=== PATIENT | female | born 1935 | race Caucasian/White ===

== ENCOUNTER → 2018-01-12 | Outpatient (CLI) | payer MEDICARE ==
[~2018-01-12] MED LIST: ASPI325 PO; Antivert25 MG PO; CENESTIN; ESTR.625; EXFORGE; LEVSOD50; MECL25 PO; ROSU10TA; SPIR25 PO; SPIRONOLACTONE/HCTZ; Zofran Odt8 MG SL; [UNRECOGNIZED DRUG - CODE]; [UNRECOGNIZED DRUG - OTHER]
[2018-01-12 11:04] LABS: BASOPHILS ABSOLUTE AUTO 0.03 K/mm3 (0.00-0.23); BASOPHILS PERCENT AUTO 0 % (0-2); EOSINOPHILS ABSOLUTE AUTO 0.07 K/mm3 (0.00-0.68); EOSINOPHILS PERCENT AUTO 1 % (0-6); Hematocrit 40.3 % (33.0-51.0); Hemoglobin 13.4 g/dL (11.5-16.0); IMMATURE GRAN ABSOLUTE AUTO 0.06 K/mm3 (0.00-0.10); IMMATURE GRAN PERCENT AUTO 1 % (0-1); LYMPHOCYTES ABSOLUTE AUTO 1.54 K/mm3 (0.84-5.20); LYMPHOCYTES PERCENT AUTO 14 % (21-46); MONOCYTES PERCENT AUTO 5 % (4-13); Mean Corpuscular HGB 29.7 pg (26.0-34.0); Mean Corpuscular HGB Conc 33.3 g/dL (31.5-36.5); Mean Corpuscular Volume 89 fL (80-100); Mean Platelet Volume 9.9 fL (9.1-12.4); NEUTROPHILS ABSOLUTE AUTO 8.97 K/mm3 (1.96-9.15); NEUTROPHILS PERCENT AUTO 80 % (41-73); Platelet Count 350 K/mm3 (150-400); RDW Coefficient Variation 11.5 % (11.7-14.2); RDW Standard Deviation 37.1 fL (35.1-46.3); Red Blood Cell Count 4.51 M/mm3 (3.80-5.20); White Blood Cell Count 11.27 K/mm3 (4.00-11.30)
== END ==
LOC: LAB SHORT 10:29 → LAB 10:29
PROVIDERS: Nurse Practitioner
DX: M26.629 Arthralgia of temporomandibular joint, unspecified side (principal); M25.50 Pain in unspecified joint
CPT/HCPCS: 85025; 85651

== ENCOUNTER 2019-06-17 11:46 | Day surgery (SDC) | payer MEDICARE ==
[~2019-06-17] VITALS: Ht 160 cm; Wt 76.2 kg
[2019-06-17] MEDS ORDERED: Pepcid40 MG (13:07)
[2019-06-17] MEDS ORDERED: Amaryl1 MG (13:07)
[2019-06-17] MEDS ORDERED: ATOR10 (13:08)
[2019-06-17] MEDS ORDERED: LEVSOD100 (13:08)
[2019-06-17] MEDS ORDERED: SPIR25 (13:08)
[2019-06-17] MEDS ORDERED: OLME20 (13:09)
[2019-06-17] MEDS ORDERED: AMLO10 (13:09)
[2019-06-17] MEDS ORDERED: PRED1 (13:09)
[2019-06-17] MEDS ORDERED: Aspir 8181 MG (13:09)
== END 2019-06-17 14:15 | disposition home or self-care (01) ==
LOC: ORSCSDS 11:46
PROVIDERS: Internal Medicine Gastroenterology
PROC: 0D758ZZ Dilation of Esophagus, Via Natural or Artificial Opening Endoscopic (ICD-10-PCS; principal; 2019-06-17 14:00)
PROC: 0DB68ZX Excision of Stomach, Via Natural or Artificial Opening Endoscopic, Diagnostic (ICD-10-PCS; principal; 2019-06-17 14:00)
PROC: 0D568ZZ Destruction of Stomach, Via Natural or Artificial Opening Endoscopic (ICD-10-PCS; principal; 2019-06-17 14:00)
DX: R13.14 Dysphagia, pharyngoesophageal phase (principal); K31.819 Angiodysplasia of stomach and duodenum without bleeding; K29.60 Other gastritis without bleeding; K22.2 Esophageal obstruction; K44.9 Diaphragmatic hernia without obstruction or gangrene; Z86.010 Personal history of colon polyps; K57.30 Diverticulosis of large intestine without perforation or abscess without bleeding; R07.9 Chest pain, unspecified; E11.22 Type 2 diabetes mellitus with diabetic chronic kidney disease; I12.9 Hypertensive chronic kidney disease with stage 1 through stage 4 chronic kidney disease, or unspecified chronic kidney disease; N18.3 Chronic kidney disease, stage 3 (moderate); E03.9 Hypothyroidism, unspecified; E78.5 Hyperlipidemia, unspecified; Z87.891 Personal history of nicotine dependence; Z79.899 Other long term (current) drug therapy
CPT/HCPCS: 82947; 87081; J2704; J7120

== ENCOUNTER 2020-03-29 19:24 | Inpatient (IN) | payer MEDICARE ==
[~2020-03-29] VITALS: Ht 160 cm; Wt 75.3 kg
[~2020-03-29 19:24] MED LIST changes: +AMLO10; +AMLODIPINE BES2.5 MG PO; +ATOR10; +ATORVASTATIN CA20 MG PO; +Amaryl1 MG PO; +Aspir 8181 MG PO; +LEVSOD100; +OLME20; +OLMESARTAN MEDO20 MG PO; +PRED1 PO; +Pepcid40 MG PO; +SPIR25; +SPIRONOLACTONE1 EACH PO; +SYNTHROID75 MCG PO; +TRAZ50 PO
[2020-03-29 20:31] LABS: BASOPHILS ABSOLUTE AUTO 0.06 K/mm3 (0.00-0.23); BASOPHILS PERCENT AUTO 0 % (0-2); EOSINOPHILS ABSOLUTE AUTO 0.08 K/mm3 (0.00-0.68); EOSINOPHILS PERCENT AUTO 0 % (0-6); Hematocrit 36.9 % (33.0-51.0); Hemoglobin 12.8 g/dL (11.5-16.0); IMMATURE GRAN ABSOLUTE AUTO 0.14 K/mm3 (0.00-0.10); IMMATURE GRAN PERCENT AUTO 1 % (0-1); LYMPHOCYTES ABSOLUTE AUTO 2.44 K/mm3 (0.84-5.20); LYMPHOCYTES PERCENT AUTO 12 % (21-46); MONOCYTES ABSOLUTE AUTO 0.91 K/mm3 (0.16-1.47); MONOCYTES PERCENT AUTO 4 % (4-13); Mean Corpuscular HGB 30.5 pg (26.0-34.0); Mean Corpuscular HGB Conc 34.7 g/dL (31.5-36.5); Mean Corpuscular Volume 88 fL (80-100); Mean Platelet Volume 9.5 fL (9.1-12.4); NEUTROPHILS ABSOLUTE AUTO 17.38 K/mm3 (1.96-9.15); NEUTROPHILS PERCENT AUTO 83 % (41-73); Platelet Count 488 K/mm3 (150-400); RDW Coefficient Variation 12.6 % (11.7-14.2); RDW Standard Deviation 40.4 fL (35.1-46.3); White Blood Cell Count 21.01 K/mm3 (4.00-11.30)
[2020-03-29 20:42] LABS: Albumin, Blood 3.6 g/dL (3.4-5.0); Albumin/Globulin Ratio 1.1 (0.8-1.8); Bilirubin, Total 0.9 mg/dL (0.1-1.0); Bun/Creatinine Ratio 21.3 (12.0-20.0); Calcium, Blood 9.6 mg/dL (8.5-10.1); Creatinine, Blood 1.22 mg/dL (0.40-1.00); Globulin, Blood 3.4 g/dL (2.2-4.0); Potassium, Blood 3.9 mmol/L (3.5-5.5)
[2020-03-30 06:27] LABS: BASOPHILS ABSOLUTE AUTO 0.05 K/mm3 (0.00-0.23); BASOPHILS PERCENT AUTO 0 % (0-2); EOSINOPHILS ABSOLUTE AUTO 0.09 K/mm3 (0.00-0.68); EOSINOPHILS PERCENT AUTO 1 % (0-6); Hematocrit 34.8 % (33.0-51.0); Hemoglobin 11.8 g/dL (11.5-16.0); IMMATURE GRAN ABSOLUTE AUTO 0.09 K/mm3 (0.00-0.10); IMMATURE GRAN PERCENT AUTO 1 % (0-1); LYMPHOCYTES ABSOLUTE AUTO 2.15 K/mm3 (0.84-5.20); LYMPHOCYTES PERCENT AUTO 15 % (21-46); MONOCYTES ABSOLUTE AUTO 0.73 K/mm3 (0.16-1.47); MONOCYTES PERCENT AUTO 5 % (4-13); Mean Corpuscular HGB 30.3 pg (26.0-34.0); Mean Corpuscular HGB Conc 33.9 g/dL (31.5-36.5); Mean Corpuscular Volume 89 fL (80-100); Mean Platelet Volume 9.6 fL (9.1-12.4); NEUTROPHILS ABSOLUTE AUTO 11.28 K/mm3 (1.96-9.15); NEUTROPHILS PERCENT AUTO 79 % (41-73); Platelet Count 431 K/mm3 (150-400); RDW Coefficient Variation 12.7 % (11.7-14.2); RDW Standard Deviation 41.8 fL (35.1-46.3); White Blood Cell Count 14.39 K/mm3 (4.00-11.30)
[2020-03-30 06:39] LABS: Calcium, Blood 9.3 mg/dL (8.5-10.1); Creatinine, Blood 1.3 mg/dL (0.40-1.00); Potassium, Blood 3.8 mmol/L (3.5-5.5)
[2020-03-30 14:29] LABS: Source, Urine Clean Catch
[2020-03-30 14:36] LABS: Bilirubin, Urine Neg (Neg); Blood, Urine Neg (Neg); Glucose Qualitative, Urine 3+ (Neg); Ketones, Urine Neg (Neg); Leukocyte Esterase, Urine Neg (Neg); Nitrite, Urine Neg (Neg); Protein, Urine Neg (Neg); Specific Gravity, Urine 1.015 (1.003-1.022); Urobilinogen, Urine NORM (Normal)
[2020-03-30 14:46] LABS: Appearance, Urine Clear (Clear); Color, Urine Yellow (P-Yellow)
--- NOTE | 2020-03-30 16:22 | NUR ---
SHIFT SUMMARY PT WAS AN ED ADMIT THIS MORNING. SHE HAS SOME STOMACH DISCOMFORT BUT NO C/O PAIN. SHE ALSO HAS A SURGICAL SITE TO HER RIGHT HIP WHERE SHE RECENTLY HAD SURGERY. SHE IS AMBULATORY WITH A FWW AND HAS BEEN WORKING WITH THERAPY ALREADY TODAY. SHE IS ABLE TO MAKE HER NEEDS KNOWN AND HAS HER CALL LIGHT IN REACH. SHE IS RESTING IN BED WATCHING TV.
[2020-03-31 05:01] LABS: BASOPHILS ABSOLUTE AUTO 0.05 K/mm3 (0.00-0.23); BASOPHILS PERCENT AUTO 0 % (0-2); EOSINOPHILS ABSOLUTE AUTO 0.09 K/mm3 (0.00-0.68); EOSINOPHILS PERCENT AUTO 1 % (0-6); Hematocrit 33.1 % (33.0-51.0); Hemoglobin 11.4 g/dL (11.5-16.0); IMMATURE GRAN ABSOLUTE AUTO 0.09 K/mm3 (0.00-0.10); IMMATURE GRAN PERCENT AUTO 1 % (0-1); LYMPHOCYTES ABSOLUTE AUTO 1.96 K/mm3 (0.84-5.20); LYMPHOCYTES PERCENT AUTO 15 % (21-46); MONOCYTES PERCENT AUTO 5 % (4-13); Mean Corpuscular HGB 30.5 pg (26.0-34.0); Mean Corpuscular HGB Conc 34.4 g/dL (31.5-36.5); Mean Corpuscular Volume 89 fL (80-100); Mean Platelet Volume 9.4 fL (9.1-12.4); NEUTROPHILS ABSOLUTE AUTO 10.67 K/mm3 (1.96-9.15); NEUTROPHILS PERCENT AUTO 79 % (41-73); Platelet Count 366 K/mm3 (150-400); RDW Coefficient Variation 12.5 % (11.7-14.2); RDW Standard Deviation 40.6 fL (35.1-46.3); Red Blood Cell Count 3.74 M/mm3 (3.80-5.20); White Blood Cell Count 13.56 K/mm3 (4.00-11.30)
[2020-03-31 05:21] LABS: Albumin, Blood 2.8 g/dL (3.4-5.0); Anion Gap 8 mmol/L (6-16); Blood Urea Nitrogen 21 mg/dL (8-24); Bun/Creatinine Ratio 19.4 (12.0-20.0); CO2, Blood 24 mmol/L (21-32); Calcium, Blood 8.9 mg/dL (8.5-10.1); Chloride, Blood 96 mmol/L (98-108); Creatinine, Blood 1.08 mg/dL (0.40-1.00); Glomerular Filtration Rate 51 (60-); Glucose, Blood 123 mg/dL (70-99); Phosphorus, Blood 2.9 mg/dL (2.5-4.9); Potassium, Blood 3.5 mmol/L (3.5-5.5); Sodium, Blood 128 mmol/L (136-145)
--- NOTE | 2020-03-31 06:08 | NUR ---
SUMMARY NO ISSUES NOTED. PT DENIES ANY PAIN OR DISCOMFORT. PT HAS BEEN SLEEPING WELL FOR MOST OF SHIFT. PT R HIP DRESSING INTACT. PT SLEEPING AND BREATHING EASY. CALL LIGHT IN REACH AND BED ALARM ON.
[2020-03-31] MEDS ORDERED: ACET325 PO (13:34)
[2020-03-31] MEDS ORDERED: CIPR500 PO (13:34)
[2020-03-31] MEDS ORDERED: METR500 PO (13:35)
--- NOTE | 2020-03-31 14:53 | NUR ---
DISCHARGE NOTE PT ALERT AND ORIENTED THIS SHIFT. PT UP IN ROOM WITH FFW AND STANDBY ASSIST TO RESTROOM MULTIPLE TIMES THIS SHIFT. PT DENIES PAIN OR ABDOMINAL DISCOMFORT THIS SHIFT. PT ON CLEAR LIQUID DIET WITHOUT DISCOMFORT. PT'S SISTER IN THE ROOM AROUND NOON. PT AND SISTER PROVIDED WITH DISCHARGE AND MEDICATION ORDERS. NO QUESTIONS AT THIS TIME. PT DISCHARGED TO HOME ON LIQUID DIET X3 DAYS. PT PROVIDED WITH INFORMATION ON LIQUID DIET. PT TO VEHICLE VIA WHEELCHAIR BY BRADFORD Ellison CNA.
[2020-04-03] MEDS ORDERED: AMOCLA875 PO (20:52)
[2020-04-03] MEDS ORDERED: Neurontin 100100 MG PO ×2 (20:52→20:55)
[2020-04-05] MEDS ORDERED: HYDR1TAB94 PO (07:48)
[2020-04-05] MEDS ORDERED: DOCU100 PO (07:48)
== END 2020-03-31 14:10 | disposition home or self-care (01) | DRG 392 ==
LOC: ER 19:24 → MEDS 03-30 01:11 → ERHOLD 03-30 01:11 → MEDS 03-30 10:54
PROVIDERS: Family Medicine; Physician Assistant; ADMIT Internal Medicine
DX: K57.32 Diverticulitis of large intestine without perforation or abscess without bleeding (principal); E87.1 Hypo-osmolality and hyponatremia; M35.3 Polymyalgia rheumatica; I12.9 Hypertensive chronic kidney disease with stage 1 through stage 4 chronic kidney disease, or unspecified chronic kidney disease; E03.9 Hypothyroidism, unspecified; N18.3 Chronic kidney disease, stage 3 (moderate); E11.22 Type 2 diabetes mellitus with diabetic chronic kidney disease; E78.5 Hyperlipidemia, unspecified; Z66 Do not resuscitate; Z96.641 Presence of right artificial hip joint; Z79.82 Long term (current) use of aspirin
CPT/HCPCS: 36415; 74176; 80048; 80053; 80069; 81003; 82947; 83605; 83690; 85025; 96365; 96375; 97162; 97165; 97530; 99285-25; A9270-GY; J0696; J0744; J1650; J7050; J7512

== ENCOUNTER 2021-07-17 11:43 | Emergency (ER) | payer MEDICARE ==
[~2021-07-17] VITALS: Ht 160 cm; Wt 61.2 kg
[~2021-07-17 11:43] MED LIST changes: +ACET325 PO; +AMOCLA875 PO; +CIPR500 PO; +DOCU100 PO; +HYDR1TAB94 PO; +METR500 PO; +Neurontin 100100 MG PO
[2021-07-17 12:29] LABS: BASOPHILS ABSOLUTE AUTO 0.04 K/mm3 (0.00-0.23); BASOPHILS PERCENT AUTO 0 % (0-2); EOSINOPHILS ABSOLUTE AUTO 0.07 K/mm3 (0.00-0.68); EOSINOPHILS PERCENT AUTO 1 % (0-6); Hematocrit 42.6 % (33.0-51.0); Hemoglobin 14.1 g/dL (11.5-16.0); IMMATURE GRAN ABSOLUTE AUTO 0.04 K/mm3 (0.00-0.10); IMMATURE GRAN PERCENT AUTO 0 % (0-1); LYMPHOCYTES ABSOLUTE AUTO 2.01 K/mm3 (0.84-5.20); LYMPHOCYTES PERCENT AUTO 19 % (21-46); MONOCYTES ABSOLUTE AUTO 0.43 K/mm3 (0.16-1.47); MONOCYTES PERCENT AUTO 4 % (4-13); Mean Corpuscular HGB 30.5 pg (26.0-34.0); Mean Corpuscular HGB Conc 33.1 g/dL (31.5-36.5); Mean Corpuscular Volume 92 fL (80-100); Mean Platelet Volume 9.9 fL (9.1-12.4); NEUTROPHILS ABSOLUTE AUTO 7.86 K/mm3 (1.96-9.15); NEUTROPHILS PERCENT AUTO 75 % (41-73); Platelet Count 309 K/mm3 (150-400); RDW Coefficient Variation 12.5 % (11.7-14.2); RDW Standard Deviation 42.3 fL (35.1-46.3); Red Blood Cell Count 4.63 M/mm3 (3.80-5.20); White Blood Cell Count 10.45 K/mm3 (4.00-11.30)
[2021-07-17 12:47] LABS: Alanine Aminotransfer (ALT/SGP 27 U/L (12-78); Albumin, Blood 4.1 g/dL (3.4-5.0); Albumin/Globulin Ratio 1.2 (0.8-1.8); Alk Phos 121 U/L (50-136); Anion Gap 7 mmol/L (6-16); Aspartate Aminotrans (AST/SGOT 20 U/L (12-37); Blood Urea Nitrogen 32 mg/dL (8-24); Bun/Creatinine Ratio 19.9 (12.0-20.0); CO2, Blood 27 mmol/L (21-32); Calcium, Blood 9.4 mg/dL (8.5-10.1); Chloride, Blood 105 mmol/L (98-108); Creatinine, Blood 1.61 mg/dL (0.40-1.00); Globulin, Blood 3.5 g/dL (2.2-4.0); Glomerular Filtration Rate 30 (60-); Glucose, Blood 166 mg/dL (70-99); Potassium, Blood 3.6 mmol/L (3.5-5.5); Sodium, Blood 139 mmol/L (136-145); Total Protein, Blood 7.6 g/dL (6.4-8.2); Troponin I <0.015 ng/mL (0.000-0.040)
[2021-07-17 13:05] LABS: Source, Urine Voided
[2021-07-17 13:16] LABS: Appearance, Urine Hazy (Clear); Bilirubin, Urine Neg (Neg); Blood, Urine Neg (Neg); Color, Urine Yellow (P-Yellow); Glucose Qualitative, Urine 1+ (Neg); Ketones, Urine Neg (Neg); Leukocyte Esterase, Urine 3+ (Neg); Nitrite, Urine Neg (Neg); Protein, Urine 2+ (Neg); Urobilinogen, Urine NORM (Normal)
[2021-07-17 13:27] LABS: Red Blood Cells, Urine 0-2 /hpf (0-2); Squamous Epithelial Cells Mod /hpf (Few)
[2021-07-17 13:28] LABS: Bacteria Few /hpf
[2021-07-17 14:53] LABS: SARS-Cov-2 (COVID-19) PCR, MMC NEGATIVE (NEGATIVE)
== END 2021-07-17 15:02 | disposition home or self-care (01) ==
LOC: ER 11:43
PROVIDERS: Emergency Medicine; Physician Assistant
DX: R07.89 Other chest pain (principal); R06.02 Shortness of breath; E11.9 Type 2 diabetes mellitus without complications; E78.5 Hyperlipidemia, unspecified; E03.9 Hypothyroidism, unspecified; Z88.7 Allergy status to serum and vaccine; Z79.82 Long term (current) use of aspirin; Z79.899 Other long term (current) drug therapy; Z79.2 Long term (current) use of antibiotics
CPT/HCPCS: 36415; 71046; 80053; 81001; 84484; 85025; 85379; 87086; 93005; 93010; 99285-25; U0004

== ENCOUNTER 2021-07-21 04:34 | Day surgery (SDC) | payer MEDICARE | END 2021-07-21 10:30 | disposition home or self-care (01) | LOC: ATC 04:34 | DX: E27.49 Other adrenocortical insufficiency (principal); E11.22 Type 2 diabetes mellitus with diabetic chronic kidney disease; I12.9 Hypertensive chronic kidney disease with stage 1 through stage 4 chronic kidney disease, or unspecified chronic kidney disease; N18.32 Chronic kidney disease, stage 3b; E11.40 Type 2 diabetes mellitus with diabetic neuropathy, unspecified; E03.9 Hypothyroidism, unspecified; E78.5 Hyperlipidemia, unspecified; M35.3 Polymyalgia rheumatica; Z79.82 Long term (current) use of aspirin; Z79.84 Long term (current) use of oral hypoglycemic drugs | CPT/HCPCS: 80400; 82533; 96372; J0834 ==

== ENCOUNTER 2022-01-06 07:49 | Emergency (ER) | payer MEDICARE ==
[~2022-01-06] VITALS: Ht 162.6 cm; Wt 69.8 kg
[2022-01-06] MEDS ORDERED: HYDR1TAB94 PO (11:10)
[2022-01-06] MEDS ORDERED: ONDA4ODT SL (12:13)
== END 2022-01-06 12:22 | disposition home or self-care (01) ==
LOC: ER 07:49
DX: S42.251A Displaced fracture of greater tuberosity of right humerus, initial encounter for closed fracture (principal); W01.0XXA Fall on same level from slipping, tripping and stumbling without subsequent striking against object, initial encounter; W10.1XXA Fall (on)(from) sidewalk curb, initial encounter; E11.9 Type 2 diabetes mellitus without complications; E03.9 Hypothyroidism, unspecified; E78.00 Pure hypercholesterolemia, unspecified; Z79.84 Long term (current) use of oral hypoglycemic drugs; Z88.7 Allergy status to serum and vaccine
CPT/HCPCS: 73020; 73030; 73070; J2270; J2405; J3010

== ENCOUNTER 2022-05-28 19:02 | Emergency (ER) | payer MEDICARE ==
[~2022-05-28] VITALS: Ht 162.6 cm; Wt 64.9 kg
[~2022-05-28 19:02] MED LIST changes: +ONDA4ODT SL
[2022-05-28 19:38] LABS: BASOPHILS ABSOLUTE AUTO 0.05 K/mm3 (0.00-0.23); BASOPHILS PERCENT AUTO 1 % (0-2); EOSINOPHILS ABSOLUTE AUTO 0.18 K/mm3 (0.00-0.68); EOSINOPHILS PERCENT AUTO 2 % (0-6); Hematocrit 40.3 % (33.0-51.0); IMMATURE GRAN ABSOLUTE AUTO 0.06 K/mm3 (0.00-0.10); IMMATURE GRAN PERCENT AUTO 1 % (0-1); LYMPHOCYTES PERCENT AUTO 30 % (21-46); MONOCYTES ABSOLUTE AUTO 0.42 K/mm3 (0.16-1.47); MONOCYTES PERCENT AUTO 4 % (4-13); Mean Corpuscular HGB 29.7 pg (26.0-34.0); Mean Corpuscular HGB Conc 32.3 g/dL (31.5-36.5); Mean Corpuscular Volume 92 fL (80-100); Mean Platelet Volume 9.8 fL (9.1-12.4); NEUTROPHILS PERCENT AUTO 62 % (41-73); Platelet Count 254 K/mm3 (150-400); RDW Coefficient Variation 12.9 % (11.7-14.2); RDW Standard Deviation 43.8 fL (35.1-46.3); Red Blood Cell Count 4.37 M/mm3 (3.80-5.20); White Blood Cell Count 9.61 K/mm3 (4.00-11.30)
[2022-05-28 19:40] LABS: International Normalized Ratio 0.98; Prothrombin Time Results 10.3 Sec (9.7-11.5)
[2022-05-28 19:53] LABS: Albumin, Blood 3.7 g/dL (3.4-5.0); Albumin/Globulin Ratio 1.4 (0.8-1.8); Bilirubin, Total 0.4 mg/dL (0.1-1.0); Bun/Creatinine Ratio 20.5 (12.0-20.0); Calcium, Blood 9.1 mg/dL (8.5-10.1); Creatinine, Blood 1.32 mg/dL (0.40-1.00); Globulin, Blood 2.7 g/dL (2.2-4.0); Potassium, Blood 3.7 mmol/L (3.5-5.5); Total Protein, Blood 6.4 g/dL (6.4-8.2)
[2022-05-28] MEDS ORDERED: EUTHYROX75 MC1 PO (20:29)
[2022-05-28] MEDS ORDERED: ATOR40TA PO (20:30)
== END 2022-05-29 00:08 | disposition home or self-care (01) ==
LOC: ER 19:02
PROVIDERS: Student in an Organized Health Care Education/Training Program
DX: S01.01XA Laceration without foreign body of scalp, initial encounter (principal); E11.9 Type 2 diabetes mellitus without complications; E03.9 Hypothyroidism, unspecified; F10.129 Alcohol abuse with intoxication, unspecified; Z88.7 Allergy status to serum and vaccine; Z79.899 Other long term (current) drug therapy; Z79.52 Long term (current) use of systemic steroids; Z79.84 Long term (current) use of oral hypoglycemic drugs; W10.9XXA Fall (on) (from) unspecified stairs and steps, initial encounter; Z87.891 Personal history of nicotine dependence; Y90.6 Blood alcohol level of 120-199 mg/100 ml
CPT/HCPCS: 36415; 70450; 71045; 72125; 72170; 80053; 85025; 85610; 93005; 93010; G0480

== ENCOUNTER 2023-08-21 07:35 | Day surgery (SDC) | payer MEDICARE ==
[~2023-08-21] VITALS: Ht 162.6 cm; Wt 68.3 kg
[~2023-08-21 07:35] MED LIST changes: +ATOR20; +Amlodipine Bes2.5 MG PO; +COENZYME Q-1030 MG PO; +EUTHYROX100 MC1; +FAMO20 PO; +HYDCHL12.5 PO; +OLME20 PO
[2023-08-21] MEDS ORDERED: ERGO400 (07:55)
--- NOTE | 2023-08-21 11:14 | NUR ---
08/21/23 1114 vEa Lucero LATE ENTRY: PER DR CHURCH, D/T DIFFICULTY ADVANCING SCOPE THROUGH SIGMOID AND THEREFORE TIME SPENT SEDATED AND PATIENT'S AGE, UPPER ENDOSCOPY WILL NOT BE DONE TODAY BUT INSTEAD WILL BE RESCHEDULED FOR ANOTHER TIME. COLONOSCOPY WAS COMPLETED.
[2023-08-21 13:38] VITALS: BP 170/79
== END 2023-08-21 10:51 | disposition home or self-care (01) ==
LOC: ORSCSDS 07:35
PROVIDERS: Internal Medicine Gastroenterology
PROC: 0DBK8ZX Excision of Ascending Colon, Via Natural or Artificial Opening Endoscopic, Diagnostic (ICD-10-PCS; principal; 2023-08-21 09:00)
PROC: 0DBP8ZX Excision of Rectum, Via Natural or Artificial Opening Endoscopic, Diagnostic (ICD-10-PCS; principal; 2023-08-21 09:00)
PROC: 0DBN8ZX Excision of Sigmoid Colon, Via Natural or Artificial Opening Endoscopic, Diagnostic (ICD-10-PCS; principal; 2023-08-21 09:00)
DX: K62.5 Hemorrhage of anus and rectum (principal); Z86.010 Personal history of colon polyps; R15.9 Full incontinence of feces; D12.5 Benign neoplasm of sigmoid colon; K52.9 Noninfective gastroenteritis and colitis, unspecified; D12.8 Benign neoplasm of rectum; K57.30 Diverticulosis of large intestine without perforation or abscess without bleeding; R13.14 Dysphagia, pharyngoesophageal phase; Z87.891 Personal history of nicotine dependence; Z79.899 Other long term (current) drug therapy; Z79.82 Long term (current) use of aspirin
CPT/HCPCS: 82947; 88305; J2405; J2704; J7120

== ENCOUNTER 2024-05-19 11:22 | Observation (INO) | payer MEDICARE, OTHER ==
[~2024-05-19] VITALS: Ht 165.1 cm; Wt 71.2 kg
[~2024-05-19 11:22] MED LIST changes: +ERGO400 PO; -EUTHYROX100 MC1; +EUTHYROX100 MC1 PO
[2024-05-19] MEDS ORDERED: Labetalol HCL 5 MG/ML 4ML Injection (Single Dose) IV ONE ×3 (14:40→19:00)
[2024-05-19 15:05] LABS: BASOPHILS ABSOLUTE AUTO 0.06 K/mm3 (0.00-0.23); BASOPHILS PERCENT AUTO 1 % (0-2); EOSINOPHILS ABSOLUTE AUTO 0.14 K/mm3 (0.00-0.68); EOSINOPHILS PERCENT AUTO 1 % (0-6); Hemoglobin 14.8 g/dL (11.5-16.0); IMMATURE GRAN ABSOLUTE AUTO 0.05 K/mm3 (0.00-0.10); IMMATURE GRAN PERCENT AUTO 0 % (0-1); LYMPHOCYTES ABSOLUTE AUTO 2.24 K/mm3 (0.84-5.20); LYMPHOCYTES PERCENT AUTO 20 % (21-46); MONOCYTES ABSOLUTE AUTO 0.52 K/mm3 (0.16-1.47); MONOCYTES PERCENT AUTO 5 % (4-13); Mean Corpuscular HGB 29.8 pg (26.0-34.0); Mean Corpuscular HGB Conc 33.6 g/dL (31.5-36.5); Mean Corpuscular Volume 89 fL (80-100); Mean Platelet Volume 9.3 fL (9.1-12.4); NEUTROPHILS ABSOLUTE AUTO 8.16 K/mm3 (1.96-9.15); NEUTROPHILS PERCENT AUTO 73 % (41-73); Platelet Count 260 K/mm3 (150-400); RDW Coefficient Variation 12.5 % (11.7-14.2); RDW Standard Deviation 41.2 fL (35.1-46.3); Red Blood Cell Count 4.96 M/mm3 (3.80-5.20); White Blood Cell Count 11.17 K/mm3 (4.00-11.30)
[2024-05-19 15:30] LABS: Free Thyroxine 1.16 ng/dL (0.70-1.60)
[2024-05-19 15:31] LABS: Albumin/Globulin Ratio 1.3 (0.8-1.8); Bilirubin, Total 0.6 mg/dL (0.1-1.0); Bun/Creatinine Ratio 11.3 (12.0-20.0); Calcium, Blood 9.1 mg/dL (8.5-10.1); Creatinine, Blood 1.06 mg/dL (0.40-1.00); Globulin, Blood 3.1 g/dL (2.2-4.0); Potassium, Blood 3.8 mmol/L (3.5-5.5); Thyroid Stimulating Hormone 3.36 uIU/mL (0.360-4.800); Total Protein, Blood 7.1 g/dL (6.4-8.2)
[2024-05-19 16:17] LABS: Influenza A, PCR NEGATIVE (NEGATIVE); Influenza B, PCR NEGATIVE (NEGATIVE); Resp Syncytial Virus, PCR NEGATIVE (NEGATIVE); SARS-Cov-2 (COVID-19) PCR, MMC NEGATIVE (NEGATIVE)
[2024-05-19 19:07] LABS: Source, Urine Clean Catch
[2024-05-19 19:12] LABS: Appearance, Urine Clear (Clear); Bilirubin, Urine Neg (Neg); Blood, Urine Neg (Neg); Color, Urine Pale Yellow (P-Yellow); Glucose Qualitative, Urine Neg (Neg); Ketones, Urine Neg (Neg); Leukocyte Esterase, Urine Neg (Neg); Nitrite, Urine Neg (Neg); Protein, Urine Neg (Neg); Urobilinogen, Urine NORM (Normal); pH, Urine 6.5 (5.0-8.0)
[2024-05-19] MEDS ORDERED: TraMADol HCl 50 MG Tab PO PRN (21:25)
[2024-05-19] MEDS ORDERED: NS 1,000 ML IV SCH (21:25)
[2024-05-19] MEDS ORDERED: Acetaminophen 325 MG TABLET PO PRN (21:25)
[2024-05-19] MEDS ORDERED: Labetalol HCL 5 MG/ML 4ML Injection (Single Dose) IV PRN (21:30)
[2024-05-19] MEDS ORDERED: HydrALAZINE HCl 20 MG / ML 1ML Vial IV PRN (21:30)
[2024-05-19] MEDS ORDERED: Ondansetron HCl 2 MG / ML 2ML Vial IV PRN (21:30)
[2024-05-19] MEDS ORDERED: Aspirin 325 MG Tab PO ONE (22:00)
[2024-05-20 05:45] LABS: Hematocrit 41.3 % (33.0-51.0); Hemoglobin 13.7 g/dL (11.5-16.0); Mean Corpuscular HGB 29.8 pg (26.0-34.0); Mean Corpuscular HGB Conc 33.2 g/dL (31.5-36.5); Mean Corpuscular Volume 90 fL (80-100); Mean Platelet Volume 9.4 fL (9.1-12.4); Platelet Count 222 K/mm3 (150-400); RDW Coefficient Variation 12.9 % (11.7-14.2); RDW Standard Deviation 42.5 fL (35.1-46.3); Red Blood Cell Count 4.59 M/mm3 (3.80-5.20); White Blood Cell Count 7.96 K/mm3 (4.00-11.30)
[2024-05-20 06:10] LABS: Bun/Creatinine Ratio 12.5 (12.0-20.0); Calcium, Blood 9.6 mg/dL (8.5-10.1); Creatinine, Blood 1.04 mg/dL (0.40-1.00); Potassium, Blood 4.1 mmol/L (3.5-5.5)
[2024-05-20] MEDS ORDERED: Aspirin 81 MG Chew PO SCH (09:00)
[2024-05-20] MEDS ORDERED: Enoxaparin 40 MG/0.4 ML SYR SC SCH (09:00)
[2024-05-20 10:56] VITALS: BP 183/76
[2024-05-20] MEDS ORDERED: AMLO5 PO (13:52)
[2024-05-20] MEDS ORDERED: ASPI81CH PO (13:53)
[2024-05-20] MEDS ORDERED: CLOP75 PO (13:53)
[2024-05-20] MEDS ORDERED: Losartan Potassium 50 MG Tab PO SCH (14:00)
[2024-05-20] MEDS ORDERED: AmLODIPine Besylate 5 MG Tab PO SCH (14:00)
[2024-05-20] MEDS ORDERED: Clopidogrel Bisulfate 75 MG Tab PO SCH (14:00)
== END 2024-05-19 15:13 | disposition other institution (70) ==
LOC: ER 11:22 → ERHOLD 11:23
PROVIDERS: Nurse Practitioner Acute Care; Student in an Organized Health Care Education/Training Program; ADMIT Student in an Organized Health Care Education/Training Program
DX: I63.9 Cerebral infarction, unspecified (principal); I16.0 Hypertensive urgency; I16.1 Hypertensive emergency; E78.00 Pure hypercholesterolemia, unspecified; E03.9 Hypothyroidism, unspecified; E11.9 Type 2 diabetes mellitus without complications; Z79.84 Long term (current) use of oral hypoglycemic drugs; Z79.899 Other long term (current) drug therapy; Z87.891 Personal history of nicotine dependence; Z88.8 Allergy status to other drugs, medicaments and biological substances
CPT/HCPCS: 0241U; 70450; 70496; 70498; 70551; 71045; 80048; 80053; 81003; 82947; 83735; 83880; 84439; 84443; 84484; 85025; 85027; 93005; 93010; 93306; 96361; 96372; 96374-59; 96376-59; 99285-25; A9270; G0378; J1650; J7030; Q9967

== ENCOUNTER 2024-08-20 08:25 | Inpatient (IN) | payer MEDICARE, OTHER ==
[~2024-08-20] VITALS: Ht 157.5 cm; Wt 71.1 kg
[2024-08-20] VITALS (9 sets, daily range): BP systolic 125–176; BP diastolic 62–89
[~2024-08-20 08:25] MED LIST changes: +AMLO5 PO; +ASPI81CH PO; +CLOP75 PO; +RAYOS PO
[2024-08-20 09:11] LABS: Source, Urine Clean Catch
[2024-08-20 09:14] LABS: Appearance, Urine Clear (Clear); Bilirubin, Urine Neg (Neg); Blood, Urine Neg (Neg); Color, Urine Yellow (P-Yellow); Glucose Qualitative, Urine Neg (Neg); Ketones, Urine Neg (Neg); Leukocyte Esterase, Urine Neg (Neg); Nitrite, Urine Neg (Neg); Protein, Urine Neg (Neg); Urobilinogen, Urine NORM (Normal)
[2024-08-20 09:15] LABS: BASOPHILS ABSOLUTE AUTO 0.06 K/mm3 (0.00-0.23); BASOPHILS PERCENT AUTO 1 % (0-2); EOSINOPHILS ABSOLUTE AUTO 0.14 K/mm3 (0.00-0.68); EOSINOPHILS PERCENT AUTO 2 % (0-6); Hematocrit 47.4 % (33.0-51.0); Hemoglobin 15.7 g/dL (11.5-16.0); IMMATURE GRAN ABSOLUTE AUTO 0.03 K/mm3 (0.00-0.10); IMMATURE GRAN PERCENT AUTO 0 % (0-1); LYMPHOCYTES ABSOLUTE AUTO 1.53 K/mm3 (0.84-5.20); LYMPHOCYTES PERCENT AUTO 20 % (21-46); MONOCYTES ABSOLUTE AUTO 0.28 K/mm3 (0.16-1.47); MONOCYTES PERCENT AUTO 4 % (4-13); Mean Corpuscular HGB 30.3 pg (26.0-34.0); Mean Corpuscular HGB Conc 33.1 g/dL (31.5-36.5); Mean Corpuscular Volume 91 fL (80-100); Mean Platelet Volume 9.1 fL (9.1-12.4); NEUTROPHILS ABSOLUTE AUTO 5.56 K/mm3 (1.96-9.15); NEUTROPHILS PERCENT AUTO 73 % (41-73); Platelet Count 224 K/mm3 (150-400); RDW Coefficient Variation 13.1 % (11.7-14.2); RDW Standard Deviation 44.2 fL (35.1-46.3); Red Blood Cell Count 5.19 M/mm3 (3.80-5.20)
[2024-08-20 09:39] LABS: Albumin/Globulin Ratio 1.2 (0.8-1.8); Bilirubin, Total 0.9 mg/dL (0.1-1.0); Bun/Creatinine Ratio 12.4 (12.0-20.0); Calcium, Blood 9.7 mg/dL (8.5-10.1); Creatinine, Blood 1.21 mg/dL (0.40-1.00); Globulin, Blood 3.3 g/dL (2.2-4.0); Potassium, Blood 3.9 mmol/L (3.5-5.5); Total Protein, Blood 7.3 g/dL (6.4-8.2)
[2024-08-20] MEDS ORDERED: FAMO20 PO (10:45)
[2024-08-20] MEDS ORDERED: AmLODIPine Besylate 5 MG Tab PO ONE (10:55)
[2024-08-20] MEDS ORDERED: Acetaminophen 500 MG Tab PO ONE (10:55)
[2024-08-20] MEDS ORDERED: HydrALAZINE HCl 20 MG / ML 1ML Vial IV ONE ×3 (11:35→12:25)
[2024-08-20] MEDS ORDERED: Labetalol HCL 5 MG/ML 4ML Injection (Single Dose) IV ONE (13:00)
[2024-08-20] MEDS ORDERED: FLU VACC TS2024-25(6MOS UP)/PF 45 MCG/0.5 ML SYRINGE IM SCH (13:45)
[2024-08-20] MEDS ORDERED: HydrALAZINE HCl 20 MG / ML 1ML Vial IV PRN ×2 (13:50→21:15)
[2024-08-20] MEDS ORDERED: Labetalol HCL 5 MG/ML 4ML Injection (Single Dose) IV PRN (13:50)
[2024-08-20] MEDS ORDERED: HYDROcodone 5-APAP 325 TAB PO ONE (15:05)
[2024-08-20] MEDS ORDERED: HYDROcodone 5-APAP 325 TAB PO PRN (15:50)
[2024-08-20] MEDS ORDERED: CloNIDine HCL 0.1 MG Patch TOP SCH (15:55)
[2024-08-20] MEDS ORDERED: Irbesartan 150 MG Tab PO SCH (17:00)
--- NOTE | 2024-08-20 18:45 | NUR ---
PCU ARRIVAL PT ARRIVING TO PCU 3 FROM ER. PT IS ALERT BUT VERY CONFUSED. PT KNOWS HER NAME, , AND YEA BUT NOT WHERE SHE IS. PT'S VSS W SBP IN THE 160'S. SPO2 >92% ON RM AIR. MONITOR SHOWING SR 70'S. PT REPORTNG HER HEADACHE IS 2/10. REDNESS NOTED ON HER COCCYX BY THIS RN AND YOVANNY Richardson RN. PT GIVEN DINNER TRAY. BED ALARM ON. WILL REPORT TO NOC RN.
--- NOTE | 2024-08-20 20:51 | NUR ---
ASSUMPTION OF CARE THIS RN ASSUMED CARE OF THIS PATIENT AT 1900. PT ADMITTED THIS EVENING FOR HYPERTENSIVE URGENCY. UPON INITIAL ASSESSMENT, PATIENT'S SBP 170'S. PRN HYDRALAZINE 10MG GIVEN PER EMAR ORDERS FOR SBP > 160. SHORTLY AFTER, PATIENT BECAME NAUSEOUS WITH 200ML EMESIS OUT. BP AT THIS TIME WAS 125/73. PATIENT ENDORSED FEELING "SHAKEY" AT THIS TIME WELL. FOLLOWUP BP 136/67. PT ENDORSING SYMPTOM IMPROVEMENT. SEE VITALS CHARTING FOR MORE DETAILS. THIS RN PHONED NIGHT RESIDENT, DR. EMMANUEL @ 2042, NO ANSWER. THIS RN PHONED NIGHT RESIDENT, DR. EMMANUEL @ 2055. SITUATION DISCUSSED WITH , MEDS FOR NAUSEA RELIEF REQUESTED. MD STATES "I WILL LOOK AT THE PATIENT'S CHART." NO NEW ORDERS RECEIVED AT THIS TIME.
[2024-08-20] MEDS ORDERED: Ondansetron HCl 2 MG / ML 2ML Vial IV PRN (21:15)
[2024-08-21] VITALS (14 sets, daily range): BP systolic 91–167; BP diastolic 55–102
[2024-08-21 05:30] LABS: BASOPHILS ABSOLUTE AUTO 0.05 K/mm3 (0.00-0.23); BASOPHILS PERCENT AUTO 1 % (0-2); EOSINOPHILS ABSOLUTE AUTO 0.11 K/mm3 (0.00-0.68); EOSINOPHILS PERCENT AUTO 1 % (0-6); Hematocrit 45.8 % (33.0-51.0); Hemoglobin 15.5 g/dL (11.5-16.0); IMMATURE GRAN ABSOLUTE AUTO 0.04 K/mm3 (0.00-0.10); IMMATURE GRAN PERCENT AUTO 0 % (0-1); LYMPHOCYTES ABSOLUTE AUTO 1.95 K/mm3 (0.84-5.20); LYMPHOCYTES PERCENT AUTO 20 % (21-46); MONOCYTES ABSOLUTE AUTO 0.39 K/mm3 (0.16-1.47); MONOCYTES PERCENT AUTO 4 % (4-13); Mean Corpuscular HGB 30.3 pg (26.0-34.0); Mean Corpuscular HGB Conc 33.8 g/dL (31.5-36.5); Mean Corpuscular Volume 90 fL (80-100); Mean Platelet Volume 9.7 fL (9.1-12.4); NEUTROPHILS ABSOLUTE AUTO 7.43 K/mm3 (1.96-9.15); NEUTROPHILS PERCENT AUTO 75 % (41-73); Platelet Count 257 K/mm3 (150-400); RDW Coefficient Variation 13.4 % (11.7-14.2); RDW Standard Deviation 43.8 fL (35.1-46.3); Red Blood Cell Count 5.11 M/mm3 (3.80-5.20); White Blood Cell Count 9.97 K/mm3 (4.00-11.30)
[2024-08-21] MEDS ORDERED: Levothyroxine Sodium 0.075 MG Tab PO SCH (06:00)
[2024-08-21 06:20] LABS: Albumin, Blood 3.6 g/dL (3.4-5.0); Albumin/Globulin Ratio 1.1 (0.8-1.8); Bun/Creatinine Ratio 15.1 (12.0-20.0); Calcium, Blood 9.1 mg/dL (8.5-10.1); Creatinine, Blood 1.06 mg/dL (0.40-1.00); Globulin, Blood 3.2 g/dL (2.2-4.0); Magnesium, Blood 2.4 mg/dL (1.6-2.4); Phosphorus, Blood 3.6 mg/dL (2.5-4.9); Potassium, Blood 3.5 mmol/L (3.5-5.5); Thyroid Stimulating Hormone 97.8 uIU/mL (0.360-4.800); Total Protein, Blood 6.8 g/dL (6.4-8.2)
--- NOTE | 2024-08-21 06:26 | NUR ---
SHIFT SUMMARY PT IS A&O x4. INTERMITTENTLY CONFUSED. Q2H NEURO CHECKS PER ORDERS. NO ACUTE EVENTS OVERNIGHT.
[2024-08-21] MEDS ORDERED: Cholecalciferol 400 unit Tab PO SCH (09:00)
[2024-08-21] MEDS ORDERED: Clopidogrel Bisulfate 75 MG Tab PO SCH (09:00)
[2024-08-21] MEDS ORDERED: Levothyroxine Sodium 100 MCG Vial IV ONE (09:00)
[2024-08-21] MEDS ORDERED: Enoxaparin 30 MG/0.3 ML SYR SC SCH (09:00)
[2024-08-21] MEDS ORDERED: Famotidine 20 MG Tab PO SCH ×2 (09:00)
[2024-08-21] MEDS ORDERED: AmLODIPine Besylate 5 MG Tab PO SCH (09:00)
[2024-08-21] MEDS ORDERED: PredniSONE 5 MG Tab PO SCH (09:00)
--- NOTE | 2024-08-21 14:12 | NUR ---
CARE ASSUMPTION ASSUMING CARE OF PT AT THIS TIME. PT A&O, ABLE TO MAKE NEEDS KNOWN. UP TO BATHROOM SBA. BACK TO BED, CALL LIGHT IN REACH.
[2024-08-21] MEDS ORDERED: Liothyronine Sodium 5 MCG Tab PO SCH (16:30)
[2024-08-21] MEDS ORDERED: Carvedilol 3.125 MG Tab PO SCH (17:00)
--- NOTE | 2024-08-21 17:06 | NUR ---
SHIFT SUMMARY PT A&Ox4, ANSWERS QUESTIONS APPROPRIATELY BUT IS FORGETFUL AT TIMES AND AT ONE TIME THOUGHT PEOPLE WERE LOOKING INTO HER WINDOW. CALLS AND COMMUNICATES NEEDS APPROPRIATELY AND IS COOPERATIVE WITH CARE. BP ELEVATED, MANAGING PER EMAR, ASYMPTOMATIC, DENIES CP/PRESSURE/HEADACHE. SpO2> 92% RA, DENIES SOB. 1 ASSIST TO BSC, CONTINENT OF URINE AND BOWEL. DENIES PAIN. NO OTHER EVENTS, WILL REPORT TO ONCOMING RN.
[2024-08-21] MEDS ORDERED: Irbesartan 150 MG Tab PO SCH (21:00)
[2024-08-21] MEDS ORDERED: QUEtiapine Fumarate 25 MG Tab PO SCH (23:00)
[2024-08-21] MEDS ORDERED: Melatonin 3 MG Tab PO SCH (23:00)
[2024-08-22] VITALS (17 sets, daily range): BP systolic 116–151; BP diastolic 59–85
--- NOTE | 2024-08-22 06:44 | NUR ---
NOC SHIFT SUMMARY JESSICA WAS ORIENTED X2-4 OVERNIGHT, FREQUENT REORIENTATION NEEDED. SR/SB WITH BUNDLE ON TELEMETRY. OCCASIONAL BUNDLE FLIP. SHE WAS BECOMING FRUSTRATED/AGITATED AROUND 2200 STATING "i JUST DON'T UNDERSTAND I WANT TO KNOW WHATS THE PLAN AND WHERE I'M GOING" CONTINUED EDUCATION AND REINFORCEMENT/REDIRECTION REGARDING PLACE/SITUATION. PULLING AT TELE/GOWN. SPOKE WITH RESIDENT ASSISTANT MERCHANDISE MANAGER REGARDING CONTINUED AGITATION. PO SEROQUEL AND MELATONIN RECEIVED. PT TOLERATED WELL. SEE EMAR FOR DETAILS. PAIN X1 OVERNIGHT GENERALIZED/BACK. PRNS GIVEN WITH RELIEF. PT REFUSED SOME CARES AND DECLINED LABS THIS AM. PLAN TO ATTEMPT AGAIN AROUND 0700. WILL PASS ON TO DAY RN
[2024-08-22] MEDS ORDERED: Carvedilol 3.125 MG Tab PO SCH ×2 (08:00→09:00)
[2024-08-22] MEDS ORDERED: Carvedilol 6.25 MG Tab PO SCH (08:00)
[2024-08-22 08:44] LABS: BASOPHILS ABSOLUTE AUTO 0.03 K/mm3 (0.00-0.23); BASOPHILS PERCENT AUTO 0 % (0-2); EOSINOPHILS ABSOLUTE AUTO 0.13 K/mm3 (0.00-0.68); EOSINOPHILS PERCENT AUTO 2 % (0-6); Hematocrit 44.4 % (33.0-51.0); IMMATURE GRAN ABSOLUTE AUTO 0.03 K/mm3 (0.00-0.10); IMMATURE GRAN PERCENT AUTO 0 % (0-1); LYMPHOCYTES ABSOLUTE AUTO 1.89 K/mm3 (0.84-5.20); LYMPHOCYTES PERCENT AUTO 21 % (21-46); MONOCYTES ABSOLUTE AUTO 0.36 K/mm3 (0.16-1.47); MONOCYTES PERCENT AUTO 4 % (4-13); Mean Corpuscular HGB 30.9 pg (26.0-34.0); Mean Corpuscular HGB Conc 33.8 g/dL (31.5-36.5); Mean Corpuscular Volume 91 fL (80-100); Mean Platelet Volume 9.6 fL (9.1-12.4); NEUTROPHILS ABSOLUTE AUTO 6.48 K/mm3 (1.96-9.15); NEUTROPHILS PERCENT AUTO 73 % (41-73); Platelet Count 278 K/mm3 (150-400); RDW Coefficient Variation 13.5 % (11.7-14.2); Red Blood Cell Count 4.86 M/mm3 (3.80-5.20); White Blood Cell Count 8.92 K/mm3 (4.00-11.30)
[2024-08-22 09:06] LABS: C-REACTIVE PROTEIN, EXT RANGE 0.587 mg/dL (0.000-0.300); Free Thyroxine 0.45 ng/dL (0.70-1.60); Triiodothyronine, Free 1.34 pg/mL (2.18-3.98)
[2024-08-22 09:42] LABS: Albumin, Blood 3.8 g/dL (3.4-5.0); Albumin/Globulin Ratio 1.3 (0.8-1.8); Bilirubin, Total 1.4 mg/dL (0.1-1.0); Bun/Creatinine Ratio 14.1 (12.0-20.0); Calcium, Blood 9.5 mg/dL (8.5-10.1); Creatinine, Blood 1.42 mg/dL (0.40-1.00); Potassium, Blood 3.8 mmol/L (3.5-5.5); Total Protein, Blood 6.8 g/dL (6.4-8.2)
--- NOTE | 2024-08-22 12:08 | NUR ---
ASSUMPTION OF CARE THIS RN ASSUMED CARE OF PT AT 0700. PT VERY CONFUSED AND CRYING STATING THAT SHE JUST DOESN'T UNDERSTAND WHERE SHE IS OR WHAT IS GOING ON. THIS RN AND OTHER STAFF MEMBERS HAD EXPLAINED HER SITUATION MULTIPLE TIMES AND SAT DOWN WITH HER TRYING TO COMFORT HER. PT VERY TEARFUL AND NOT WANTING TO LOOK AT STAFF. PT STATED "I FEEL SO SLEEPY BUT I'M SCARED TO FALL ASLEEP AND WAKE UP IN A STRANGE PLACE AGAIN." AFTER EACH COVERSATION SHE CONTINUED TO STATE THAT SHE DID NOT KNOW WHERE SHE WAS OR WHAT WAS GOING ON DESPITE CONVERSATIONS WT STAFF. PT VERY TEARFUL AND NOT WANTING TO LOOK AT STAFF. GRANDDAUGHTER CAME TO BEDSIDE, SAT WITH PT AND TALKED WITH HER FOR A FEW HOURS AND PT IS MUCH MORE ORIENTED AND HAPPY AT THIS TIME. STATING THAT SHE DOESN'T KNOW WHAT WAS INTO HER THIS MORNING BUT THAT IT WAS SCARY.
--- NOTE | 2024-08-22 17:20 | NUR ---
SHIFT SUMMARY SEE PREVIOUS NOTE. PT A&Ox4, ANSWERS QUESTIONS APPROPRIATELY BUT IS FORGETFUL AT TIMES. CALLS AND COMMUNICATES NEEDS APPROPRIATELY AND IS COOPERATIVE WITH CARE. BP STABLE, SINUS 80's LBBB, DENIES CP/PRESSURE/HEADACHE. SpO2> 92% RA, DENIES SOB. 1 ASSIST TO BATHROOM, CONTINENT OF URINE AND BOWEL. LOW URINE OUTPUT, ENCOURAGING PO INTAKE. DENIES PAIN. NO OTHER EVENTS, WILL REPORT TO ONCOMING RN.
--- NOTE | 2024-08-22 21:30 | NUR ---
RECEIVED REPORT FROM DES GASTELUM ON PT COMING FROM U 03.
--- NOTE | 2024-08-22 21:57 | NUR ---
PT ARRIVED ON UNIT FROM [facility] 03 @ 3043 WITH ALL BELONGINGS AND RX.
[2024-08-23 03:36] VITALS: BP 138/66
--- NOTE | 2024-08-23 05:37 | NUR ---
SHIFT SUMMARY NOC PT A/O X 3. FORGETFUL AT TIMES. VSS. TRANSFER FROM PCU 03. DURING 2 RN SKIN ASSESSMENT, PT FOUND TO HAVE BLANCHABLE RED PRESSURE INJURY BETWEEN THE GLUTEAL FOLDS AND BARRIER CREAM AND MEPILEX PLACED. PT ON TELE SINUS RHYTHM/LBBB IN 80'S. PT LIVES AT HOME AND IS DECLINING REFERRALS FOR HOME HEALTH AT THE MOMENT. PT LIVES ALONE IN [place] AND IS UNABLE TO CARE FOR SELF ACCORDING TO REPORT. PT FAMILY DOES NOT LIVE NEARBY. PER OPTOMECHANICAL TECHNICIAN REPORT PT RECEIVED DOSE OF SEROQUEL AT NIGHT ON 08/21/24 WITH AMS NOTED AFTER RECEIVING IT, RX WAS D/C. PT CURRENTLY RESTING WITH BED ALARM ON, BED IN LOWEST POSITION, AND CALL LIGHT WITHIN REACH.
[2024-08-23] MEDS ORDERED: Famotidine 20 MG Tab PO SCH (06:00)
[2024-08-23 06:08] LABS: BASOPHILS ABSOLUTE AUTO 0.03 K/mm3 (0.00-0.23); BASOPHILS PERCENT AUTO 0 % (0-2); EOSINOPHILS ABSOLUTE AUTO 0.12 K/mm3 (0.00-0.68); EOSINOPHILS PERCENT AUTO 1 % (0-6); Hematocrit 39.8 % (33.0-51.0); Hemoglobin 13.3 g/dL (11.5-16.0); IMMATURE GRAN ABSOLUTE AUTO 0.04 K/mm3 (0.00-0.10); IMMATURE GRAN PERCENT AUTO 1 % (0-1); LYMPHOCYTES ABSOLUTE AUTO 2.59 K/mm3 (0.84-5.20); LYMPHOCYTES PERCENT AUTO 30 % (21-46); MONOCYTES PERCENT AUTO 5 % (4-13); Mean Corpuscular HGB 30.3 pg (26.0-34.0); Mean Corpuscular HGB Conc 33.4 g/dL (31.5-36.5); Mean Corpuscular Volume 91 fL (80-100); Mean Platelet Volume 9.6 fL (9.1-12.4); NEUTROPHILS ABSOLUTE AUTO 5.37 K/mm3 (1.96-9.15); NEUTROPHILS PERCENT AUTO 63 % (41-73); Platelet Count 236 K/mm3 (150-400); RDW Coefficient Variation 13.4 % (11.7-14.2); RDW Standard Deviation 44.9 fL (35.1-46.3); Red Blood Cell Count 4.39 M/mm3 (3.80-5.20); White Blood Cell Count 8.55 K/mm3 (4.00-11.30)
[2024-08-23 06:28] LABS: Bun/Creatinine Ratio 20.1 (12.0-20.0); Calcium, Blood 9.2 mg/dL (8.5-10.1); Creatinine, Blood 1.34 mg/dL (0.40-1.00); Potassium, Blood 3.7 mmol/L (3.5-5.5)
[2024-08-23 07:12] VITALS: BP 137/52
[2024-08-23] MEDS ORDERED: Levothyroxine Sodium 100 MCG Vial IV SCH (09:00)
[2024-08-23] MEDS ORDERED: Irbesartan 150 MG Tab PO SCH (09:00)
--- NOTE | 2024-08-23 16:30 | NUR ---
PT PLEASANT TODAY. PT STATES HAD FAMILY TO COME SEE HER TODAY AND HOPE TO TAKE HOME. FAMILY AGREES PT MIGHT DO WELL TO STAY OVERNITE. DR CUEVAS WAS PLANNING SAME. PT AGREED FOR OVERNITE. PT MOSTLY ORIENTED, SOME DETAILS ARE NOTICED OFF. ALSO CLAIMED HAIR TURNED MUCH WHITER LAST NIGHT. THOUGHT WAS LAST JULY NOT 08/23. FOLLOWS DIRECTION PRETTY WELL. 1 MIN ASST TO BATHROOM. BED IN LOW POSITION, CALL LITE IN REACH, BED ALARM ON FOR SAFETY
[2024-08-23 19:24] VITALS: BP 163/68
[2024-08-23 20:23] VITALS: BP 149/69
--- NOTE | 2024-08-24 03:29 | NUR ---
SHIFT SUMMARY PT AOX3/4, COOPERATIVE, ABLE TO MAKE NEEDS KNOWN. EARLY SHIFT, RIGHT IV INFILTRATED DURING HYDRALAZINE ADMINISTRATION WITH BP 168/63, GAVE LABETALOL. CHARGE NURSE ESTABLISHED IV LEFT AC. BLOOD PRESSURE DECREASED TO 140'S. IND IN ROOM, USES BATHROOM APPROPRIATELY, MEPILEX TO COCCYX AREA. BED IN LOWEST POSITION, CALL LIGHT WITHIN REACH.
[2024-08-24 05:18] VITALS: BP 135/74
[2024-08-24 05:37] LABS: BASOPHILS ABSOLUTE AUTO 0.05 K/mm3 (0.00-0.23); BASOPHILS PERCENT AUTO 1 % (0-2); EOSINOPHILS ABSOLUTE AUTO 0.12 K/mm3 (0.00-0.68); EOSINOPHILS PERCENT AUTO 1 % (0-6); Hematocrit 41.3 % (33.0-51.0); Hemoglobin 14.4 g/dL (11.5-16.0); IMMATURE GRAN ABSOLUTE AUTO 0.03 K/mm3 (0.00-0.10); IMMATURE GRAN PERCENT AUTO 0 % (0-1); LYMPHOCYTES ABSOLUTE AUTO 2.79 K/mm3 (0.84-5.20); LYMPHOCYTES PERCENT AUTO 28 % (21-46); MONOCYTES ABSOLUTE AUTO 0.52 K/mm3 (0.16-1.47); MONOCYTES PERCENT AUTO 5 % (4-13); Mean Corpuscular HGB 31.2 pg (26.0-34.0); Mean Corpuscular HGB Conc 34.9 g/dL (31.5-36.5); Mean Corpuscular Volume 89 fL (80-100); Mean Platelet Volume 9.4 fL (9.1-12.4); NEUTROPHILS ABSOLUTE AUTO 6.35 K/mm3 (1.96-9.15); NEUTROPHILS PERCENT AUTO 64 % (41-73); Platelet Count 248 K/mm3 (150-400); RDW Coefficient Variation 13.3 % (11.7-14.2); RDW Standard Deviation 43.8 fL (35.1-46.3); Red Blood Cell Count 4.62 M/mm3 (3.80-5.20); White Blood Cell Count 9.86 K/mm3 (4.00-11.30)
[2024-08-24] MEDS ORDERED: Aspir 8181 MG PO (06:05)
[2024-08-24] MEDS ORDERED: AMLODIPINE BESY10 MG PO (06:05)
[2024-08-24 06:06] LABS: Albumin, Blood 3.6 g/dL (3.4-5.0); Albumin/Globulin Ratio 1.2 (0.8-1.8); Bilirubin, Total 0.8 mg/dL (0.1-1.0); Bun/Creatinine Ratio 21.6 (12.0-20.0); Calcium, Blood 9.8 mg/dL (8.5-10.1); Creatinine, Blood 1.16 mg/dL (0.40-1.00); Globulin, Blood 2.9 g/dL (2.2-4.0); Potassium, Blood 3.8 mmol/L (3.5-5.5); Total Protein, Blood 6.5 g/dL (6.4-8.2)
[2024-08-24] MEDS ORDERED: LEVSOD100 PO (06:07)
[2024-08-24] MEDS ORDERED: OLME20 PO (06:08)
[2024-08-24 07:18] VITALS: BP 148/74
[2024-08-24 08:41] VITALS: BP 148/75
[2024-08-24] MEDS ORDERED: CARV3.125 PO (13:00)
--- NOTE | 2024-08-24 15:04 | NUR ---
DISCHARGE NOTE PT DISCHARGED TO HOME, PICKED UP BY HER DAUGHTER IN [place]. IV REMOVED. TELE RETURNED. MEDICATIONS FAXED TO THE PHARMACY OF HER CHOICE. DISCHARGE INFORMATION AND EDUCATION PROVIDED. PERSONAL BELONGINGS RETURNED.
== END 2024-08-24 15:09 | disposition home health service (06) | DRG 305 ==
LOC: ER 08:25 → PCU 13:43 → MEDS 08-22 21:46 → ENPENDDIS 08-24 13:05 → MEDS 08-24 15:09
PROVIDERS: Internal Medicine; Student in an Organized Health Care Education/Training Program; ADMIT Hospitalist
DX: I16.0 Hypertensive urgency (principal); I47.19 Other supraventricular tachycardia; E03.9 Hypothyroidism, unspecified; I44.7 Left bundle-branch block, unspecified; K21.9 Gastro-esophageal reflux disease without esophagitis; R13.10 Dysphagia, unspecified; N18.31 Chronic kidney disease, stage 3a; K57.30 Diverticulosis of large intestine without perforation or abscess without bleeding; R13.19 Other dysphagia; E78.5 Hyperlipidemia, unspecified; M35.3 Polymyalgia rheumatica; E11.22 Type 2 diabetes mellitus with diabetic chronic kidney disease; I12.9 Hypertensive chronic kidney disease with stage 1 through stage 4 chronic kidney disease, or unspecified chronic kidney disease; Z86.73 Personal history of transient ischemic attack (TIA), and cerebral infarction without residual deficits; Z90.49 Acquired absence of other specified parts of digestive tract; Z90.710 Acquired absence of both cervix and uterus; Z98.890 Other specified postprocedural states; Z88.7 Allergy status to serum and vaccine; Z79.02 Long term (current) use of antithrombotics/antiplatelets; Z79.84 Long term (current) use of oral hypoglycemic drugs; Z79.899 Other long term (current) drug therapy; Z91.148 Patient's other noncompliance with medication regimen for other reason
CPT/HCPCS: 36415; 70450; 80048; 80053; 81003; 82533; 83735; 84100; 84439; 84443; 84481; 84484; 85025; 85651; 86140; 92523; 93005; 93010; 93308; 93321; 96374; 96376; 97162; 97165; 97530; 99285-25; A9270; J0360; J1650; J2405; J7512

== ENCOUNTER 2025-04-25 20:44 | Inpatient (IN) | payer OTHER, MEDICARE ==
[~2025-04-25] VITALS: Ht 165.1 cm; Wt 66.8 kg
[~2025-04-25 20:44] MED LIST changes: +AMLODIPINE BESY10 MG PO; +CARV3.125 PO; +LEVSOD100 PO
[2025-04-25] MEDS ORDERED: HYDROmorphone HCl/Pf 1MG SYR IV ONE (21:55)
[2025-04-25] MEDS ORDERED: Ondansetron HCl 2 MG / ML 2ML Vial IV ONE (21:55)
[2025-04-25] MEDS ORDERED: FentaNYL Citrate 50 MCG/ML 2 ML Injection IV ONE (22:30)
[2025-04-25] MEDS ORDERED: Propofol 10mg/ml 20 ml Vial (Procedural) IV SCH (22:30)
[2025-04-25] MEDS ORDERED: NS 1,000 ML IV SCH (22:30)
[2025-04-25] MEDS ORDERED: Ondansetron HCl 2 MG / ML 2ML Vial ONE (23:06)
[2025-04-25] MEDS ORDERED: Metoclopramide HCl 5MG / ML 2ML Vial IV ONE (23:20)
[2025-04-26] MEDS ORDERED: HYDROmorphone HCl/Pf 1MG SYR IV ONE (00:50)
[2025-04-26] MEDS ORDERED: Ketorolac Tromethamine 30mg Vial IV ONE (01:25)
[2025-04-26] MEDS ORDERED: Naloxone HCl 0.4MG / ML 1ML Vial IV PRN (01:45)
[2025-04-26] MEDS ORDERED: Metoclopramide HCl 5MG / ML 2ML Vial IV PRN (01:45)
[2025-04-26] MEDS ORDERED: Ondansetron HCl 2 MG / ML 2ML Vial IV PRN ×2 (01:45→10:05)
[2025-04-26] MEDS ORDERED: HYDROmorphone HCl/Pf 1MG SYR IV PRN ×2 (01:50→10:05)
[2025-04-26] MEDS ORDERED: HydrALAZINE HCl 20 MG / ML 1ML Vial IV PRN ×2 (01:50→07:35)
[2025-04-26] MEDS ORDERED: Ketorolac Tromethamine 15mg Vial IV PRN (02:00)
[2025-04-26 02:01] LABS: Alanine Aminotransfer (ALT/SGP 29.0 U/L (12-78); Albumin, Blood 3.5 g/dL (3.4-5.0); Albumin/Globulin Ratio 1.0 (0.8-1.8); Anion Gap 13.0 mmol/L (3-11); Aspartate Aminotrans (AST/SGOT 26.0 U/L (12-37); Bilirubin, Total 0.9 mg/dL (0.1-1.0); Blood Urea Nitrogen 10.0 mg/dL (8-24); CO2, Blood 23.0 mmol/L (21-32); Calcium, Blood 8.7 mg/dL (8.5-10.1); Chloride, Blood 103.0 mmol/L (98-108); Creatinine, Blood 1.02 mg/dL (0.40-1.00); Globulin, Blood 3.4 g/dL (2.2-4.0); Glucose, Blood 224.0 mg/dL (70-99); Potassium, Blood 3.2 mmol/L (3.5-5.5); Sodium, Blood 136.0 mmol/L (136-145); Total Protein, Blood 6.9 g/dL (6.4-8.2)
[2025-04-26 02:09] LABS: BASOPHILS ABSOLUTE AUTO 0.06 K/mm3 (0.00-0.23); BASOPHILS PERCENT AUTO 1 % (0-2); EOSINOPHILS ABSOLUTE AUTO 0.17 K/mm3 (0.00-0.68); EOSINOPHILS PERCENT AUTO 2 % (0-6); Hematocrit 41.7 % (33.0-51.0); Hemoglobin 14.3 g/dL (11.5-16.0); IMMATURE GRAN ABSOLUTE AUTO 0.02 K/mm3 (0.00-0.10); IMMATURE GRAN PERCENT AUTO 0 % (0-1); LYMPHOCYTES ABSOLUTE AUTO 2.25 K/mm3 (0.84-5.20); LYMPHOCYTES PERCENT AUTO 30 % (21-46); MONOCYTES ABSOLUTE AUTO 0.26 K/mm3 (0.16-1.47); MONOCYTES PERCENT AUTO 4 % (4-13); Mean Corpuscular HGB Conc 34.3 g/dL (31.5-36.5); Mean Corpuscular Volume 91 fL (80-100); NEUTROPHILS ABSOLUTE AUTO 4.68 K/mm3 (1.96-9.15); NEUTROPHILS PERCENT AUTO 63 % (41-73); NRBC ABSOLUTE 0.00 K/mm3 (0.00-0.02); NRBC Auto 0.0 /100 WBC (0.0-0.2); Platelet Count 260 K/mm3 (150-400); RDW Coefficient Variation 14.2 % (11.7-14.2); RDW Standard Deviation 47.3 fL (35.1-46.3)
[2025-04-26 05:03] LABS: Magnesium, Blood 1.9 mg/dL (1.6-2.4)
[2025-04-26 05:04] LABS: Alanine Aminotransfer (ALT/SGP 25.0 U/L (12-78); Albumin, Blood 3.6 g/dL (3.4-5.0); Albumin/Globulin Ratio 1.1 (0.8-1.8); Anion Gap 10.0 mmol/L (3-11); Aspartate Aminotrans (AST/SGOT 28.0 U/L (12-37); Bilirubin, Total 1.0 mg/dL (0.1-1.0); Blood Urea Nitrogen 10.0 mg/dL (8-24); CO2, Blood 24.0 mmol/L (21-32); Calcium, Blood 8.1 mg/dL (8.5-10.1); Chloride, Blood 104.0 mmol/L (98-108); Creatinine, Blood 0.87 mg/dL (0.40-1.00); Globulin, Blood 3.3 g/dL (2.2-4.0); Glucose, Blood 271.0 mg/dL (70-99); Potassium, Blood 3.2 mmol/L (3.5-5.5); Sodium, Blood 135.0 mmol/L (136-145); Total Protein, Blood 6.9 g/dL (6.4-8.2)
[2025-04-26 05:09] LABS: pH Blood Venous 7.50 (7.34-7.37)
[2025-04-26 05:12] LABS: BASOPHILS ABSOLUTE AUTO 0.05 K/mm3 (0.00-0.23); BASOPHILS PERCENT AUTO 0 % (0-2); EOSINOPHILS ABSOLUTE AUTO 0.01 K/mm3 (0.00-0.68); EOSINOPHILS PERCENT AUTO 0 % (0-6); Hematocrit 42.1 % (33.0-51.0); Hemoglobin 14.0 g/dL (11.5-16.0); IMMATURE GRAN ABSOLUTE AUTO 0.08 K/mm3 (0.00-0.10); IMMATURE GRAN PERCENT AUTO 1 % (0-1); LYMPHOCYTES ABSOLUTE AUTO 0.83 K/mm3 (0.84-5.20); LYMPHOCYTES PERCENT AUTO 7 % (21-46); MONOCYTES ABSOLUTE AUTO 0.38 K/mm3 (0.16-1.47); MONOCYTES PERCENT AUTO 3 % (4-13); Mean Corpuscular HGB Conc 33.3 g/dL (31.5-36.5); Mean Corpuscular Volume 92 fL (80-100); NEUTROPHILS ABSOLUTE AUTO 10.92 K/mm3 (1.96-9.15); NEUTROPHILS PERCENT AUTO 89 % (41-73); NRBC ABSOLUTE 0.00 K/mm3 (0.00-0.02); NRBC Auto 0.0 /100 WBC (0.0-0.2); Platelet Count 218 K/mm3 (150-400); RDW Coefficient Variation 13.7 % (11.7-14.2); RDW Standard Deviation 46.7 fL (35.1-46.3)
[2025-04-26 08:30] LABS: C-REACTIVE PROTEIN, EXT RANGE 0.624 mg/dL (0.000-0.300); Magnesium, Blood 1.4 mg/dL (1.6-2.4); Phosphorus, Blood 2.5 mg/dL (2.5-4.9); Thyroid Stimulating Hormone 63.4 uIU/mL (0.360-4.800)
[2025-04-26] MEDS ORDERED: Haloperidol Lactate Inj. 5 MG/ML Injection IV PRN (10:05)
[2025-04-26] MEDS ORDERED: Morphine Sulfate 10 MG/ML 1MLSYR IV PRN (10:05)
[2025-04-26] MEDS ORDERED: Morphine Sulfate 20 MG/1ML 1 ML Oral Syringe SL PRN (10:05)
--- NOTE | 2025-04-26 18:26 | NUR ---
PALLIATIVE CARE VISIT: ORDER FOR COMFORT CARE RECEIVED. CHECKED ON PT, SPOKE TO PRIMARY RN ABOUT COMFORT CARE NEEDS. SPOKE TO PT JESSICA. SHE IS AWAKE, IN NO APPARENT DISTRESS, DENIES PAIN. SISTER IS IN ROOM VISITING. JESSICA GIVES ME PERMISSION TO GIVE HER SISTER AN UPDATE. UPDATED SISTER ON COMFORT CARE MEASURES AND CHOICES PT MADE. SISTER BEGAN CRYING. PROVIDED EMOTIONAL SUPPORT. SISTER WAS UNAWARE JESSICA WAS NOW ON COMFORT CARE. SISTER PLANS TO STAY THE NIGHT WITH PT. PRIMARY RN ORDERED COMFORT CART AND BROUGHTIN A RECLINER FOR HER TO SLEEP IN. SISTER PLANS TO REACH OUT TO SON GIANA TO DISCUSS FURTHER.
--- NOTE | 2025-04-26 18:44 | NUR ---
SHIFT SUMMARY- PT SISTER IS AT THE BEDSIDE. PT WAS ADMITTED THROUGH THE ER TODAY AND PLACED ON COMFORT CARE. PT HAS DENIED ANY PAIN SINCE SHE ARRIVED ON MEDICAL FLOOR. SHE IS A RISK FOR SKIN BREAKDOWN, AND SHOULD BE TURNED FREQUENTLY. SHE HAS HAD FAMILY IN THE ROOM T/O THE DAY, PUREWICK IS IN PLACE. FULL LINNEN CHANGE COMPLETED UPON HER ARRIVAL FROM THE ER. RIGHT ANKLE AND LEG ARE IN A SOFT SPLINT AFTER A CLOSED REDUCTION OF ANKLE DISLOCATION WITH Fx. FAMILY WAS PRESENT FOR THE COMFORT CARE CONVERSATION AND DECISION. PT IS EXTREMELY FORGETFULL. SHE HAD CHEST PAIN AND BILATERAL ARM WEAKNESS AND A CTA SHOWED OCCLUSIONS. THE PT DOES NOT WANT ANY INTERVENTION. PT SISTER WAS UNAWARE OF THE CC DECISION UNTIL SHE MET WITH THE PALLIATIVE CARE RN. REPORT COMPLETED WITH NIGHT RN. PT IN BED, CALL LIGHT IN REACH NO S&S OF DISTRESS.
--- NOTE | 2025-04-27 04:55 | NUR ---
PT MEDICATED ONE TIME FOR PAIN, TURNED T/O THE SHIFT. FAMILY AT BEDSIDE. NO ACUTE CHANGES NOTED THIS SHIFT.
[2025-04-27 11:47] LABS: BASOPHILS ABSOLUTE AUTO 0.04 K/mm3 (0.00-0.23); BASOPHILS PERCENT AUTO 0 % (0-2); EOSINOPHILS ABSOLUTE AUTO 0.10 K/mm3 (0.00-0.68); EOSINOPHILS PERCENT AUTO 1 % (0-6); Hematocrit 45.1 % (33.0-51.0); Hemoglobin 15.6 g/dL (11.5-16.0); IMMATURE GRAN ABSOLUTE AUTO 0.03 K/mm3 (0.00-0.10); IMMATURE GRAN PERCENT AUTO 0 % (0-1); LYMPHOCYTES ABSOLUTE AUTO 1.75 K/mm3 (0.84-5.20); LYMPHOCYTES PERCENT AUTO 14 % (21-46); MONOCYTES ABSOLUTE AUTO 0.43 K/mm3 (0.16-1.47); MONOCYTES PERCENT AUTO 3 % (4-13); Mean Corpuscular HGB Conc 34.6 g/dL (31.5-36.5); Mean Corpuscular Volume 91 fL (80-100); NEUTROPHILS ABSOLUTE AUTO 10.17 K/mm3 (1.96-9.15); NEUTROPHILS PERCENT AUTO 81 % (41-73); NRBC ABSOLUTE 0.00 K/mm3 (0.00-0.02); NRBC Auto 0.0 /100 WBC (0.0-0.2); Platelet Count 251 K/mm3 (150-400); RDW Coefficient Variation 14.1 % (11.7-14.2); RDW Standard Deviation 47.1 fL (35.1-46.3)
--- NOTE | 2025-04-27 11:48 | NUR ---
PATIENT REQUESTING TO HAVE COMFORT CARE ORDERS CHANGED. DR CHERRY AND PALLIATIVE IN TO SEE PATIENT TO DISCUSS THESE CHANGES. DR CHERRY PLACED ORDERS. DR DOBSON CONSULTED CALL TO OFFICE.
[2025-04-27 12:13] LABS: Magnesium, Blood 2.1 mg/dL (1.6-2.4)
[2025-04-27 12:14] LABS: Alanine Aminotransfer (ALT/SGP 23.0 U/L (12-78); Albumin, Blood 4.0 g/dL (3.4-5.0); Albumin/Globulin Ratio 1.3 (0.8-1.8); Anion Gap 10.0 mmol/L (3-11); Aspartate Aminotrans (AST/SGOT 19.0 U/L (12-37); Bilirubin, Total 2.0 mg/dL (0.1-1.0); Blood Urea Nitrogen 17.0 mg/dL (8-24); CO2, Blood 28.0 mmol/L (21-32); Calcium, Blood 9.3 mg/dL (8.5-10.1); Chloride, Blood 98.0 mmol/L (98-108); Creatinine, Blood 1.16 mg/dL (0.40-1.00); Globulin, Blood 3.1 g/dL (2.2-4.0); Glucose, Blood 196.0 mg/dL (70-99); Phosphorus, Blood 3.5 mg/dL (2.5-4.9); Potassium, Blood 3.3 mmol/L (3.5-5.5); Sodium, Blood 133.0 mmol/L (136-145); Total Protein, Blood 7.1 g/dL (6.4-8.2)
--- NOTE | 2025-04-27 12:43 | NUR ---
PATIENT HAD CHOKING EPISODE. PATIENT'S FAMILY HAD NOT SET PATIENT UP TO EAT, WAS LAYING TOO FLAT. TRAY WAS JUST DROPPED OFF DUE TO HAND LAMINATOR BEING IN ROOM.
[2025-04-27 14:40] VITALS: BP 171/69
--- NOTE | 2025-04-27 16:19 | NUR ---
PALLIATIVE CARE VISIT: CALLED THIS MORNING BY PRIMARY RN STATING PT HAS CHANGED HER MIND AND HAS DECIDED TO HAVE SURGERY. AT 1015 MET WITH PT, ESTHER SMALLS AND DR. ZAMORA TO DISCUSS GOC. DR. ZAMORA CONFIRMED PT CHOICE TO GET SURGERY ON HER LEG. PT AGREES TO FOLLOW PLAN OF CARE INCLUDING TAKING HER BP, HEART AND THYROID MEDICATIONS, WILL FOLLOW PHYSICAL THERAPY AND SURGERY RECOMMENDATIONS, AND WILL GO TO REHAB IF INDICATED. PT C/O BEING TO SLEEPY WITH CURRENT PAIN REGIMEN. DR. ZAMORA TO ADJUST PAIN MEDICATION AND PLACE ORDERS.
--- NOTE | 2025-04-27 16:29 | NUR ---
RECEIVED PHONE CALL FROM DR DOBSON, WASN'T NEED TO PHYSICALLY SEE PATIENT TODAY FOR CONSULT, STATED HE HAS REVIEWED IMAGING AND NOTES AND WOULD BE IN TOMORROW TO SEE HER. CORTES CALLED AND UPDATED WITH THIS INFORMATION, STATED GIANA WOULD BE IN FIRST THING IN THE AM.
[2025-04-27] MEDS ORDERED: Insulin Regular 100 UNIT/ML 10ML Vial SC SCH (16:30)
[2025-04-27] MEDS ORDERED: Enoxaparin 40 MG/0.4 ML SYR SC SCH (17:00)
[2025-04-27 17:13] LABS: Source, Urine Foley catheter
[2025-04-27 17:19] LABS: Bilirubin, Urine Neg (Neg); Color, Urine Yellow (P-Yellow); Glucose Qualitative, Urine 3+ (Neg); Ketones, Urine Neg (Neg); Leukocyte Esterase, Urine Neg (Neg); Protein, Urine 2+ (Neg); Specific Gravity, Urine 1.010 (1.003-1.022); Urobilinogen, Urine NORM (Normal)
[2025-04-27 20:15] VITALS: BP 139/104
--- NOTE | 2025-04-28 04:38 | NUR ---
NO ACUTE CHANGES DURING SHIFT. PATIENT ALERT AND ORIENTED X3. PATIENT IS BEDREST DUE TO RLE FX-SPLINT IN PLACE. PATIENT ON ROOM AIR. PURWICK IN PLACE. PATIENT SWALLOWS PILLS WHOLE. PATIENT ABLE TO MAKE NEEDS KNOWN. BED IN LOW POSITION WITH WHEELS LOCKED. CALL LIGHT WITHIN REACH
[2025-04-28 04:40] VITALS: BP 177/104
[2025-04-28 07:27] VITALS: BP 152/74
[2025-04-28 11:26] LABS: BASOPHILS ABSOLUTE AUTO 0.05 K/mm3 (0.00-0.23); BASOPHILS PERCENT AUTO 1 % (0-2); EOSINOPHILS ABSOLUTE AUTO 0.12 K/mm3 (0.00-0.68); EOSINOPHILS PERCENT AUTO 1 % (0-6); Hematocrit 40.2 % (33.0-51.0); Hemoglobin 13.8 g/dL (11.5-16.0); IMMATURE GRAN ABSOLUTE AUTO 0.04 K/mm3 (0.00-0.10); IMMATURE GRAN PERCENT AUTO 0 % (0-1); LYMPHOCYTES ABSOLUTE AUTO 1.76 K/mm3 (0.84-5.20); LYMPHOCYTES PERCENT AUTO 17 % (21-46); MONOCYTES ABSOLUTE AUTO 0.38 K/mm3 (0.16-1.47); MONOCYTES PERCENT AUTO 4 % (4-13); Mean Corpuscular HGB Conc 34.3 g/dL (31.5-36.5); Mean Corpuscular Volume 90 fL (80-100); NEUTROPHILS ABSOLUTE AUTO 8.07 K/mm3 (1.96-9.15); NEUTROPHILS PERCENT AUTO 77 % (41-73); NRBC ABSOLUTE 0.00 K/mm3 (0.00-0.02); NRBC Auto 0.0 /100 WBC (0.0-0.2); Platelet Count 290 K/mm3 (150-400); RDW Coefficient Variation 14.0 % (11.7-14.2); RDW Standard Deviation 46.9 fL (35.1-46.3)
[2025-04-28 12:46] LABS: Alanine Aminotransfer (ALT/SGP 22.0 U/L (12-78); Albumin, Blood 3.4 g/dL (3.4-5.0); Albumin/Globulin Ratio 1.2 (0.8-1.8); Anion Gap 10.0 mmol/L (3-11); Aspartate Aminotrans (AST/SGOT 27.0 U/L (12-37); Bilirubin, Total 1.2 mg/dL (0.1-1.0); Blood Urea Nitrogen 20.0 mg/dL (8-24); CO2, Blood 26.0 mmol/L (21-32); Calcium, Blood 9.1 mg/dL (8.5-10.1); Chloride, Blood 98.0 mmol/L (98-108); Creatinine, Blood 1.1 mg/dL (0.40-1.00); Globulin, Blood 2.8 g/dL (2.2-4.0); Glucose, Blood 213.0 mg/dL (70-99); Magnesium, Blood 2.2 mg/dL (1.6-2.4); Potassium, Blood 3.6 mmol/L (3.5-5.5); Sodium, Blood 130.0 mmol/L (136-145); Total Protein, Blood 6.2 g/dL (6.4-8.2)
--- NOTE | 2025-04-28 16:24 | NUR ---
Spiritual care visit conducted. THe patietn is sitting up in bed and is quite pleasant. Her sister Linda is present and speaks for patient at times but patient is also well able but slower to speak on her own behalf. We discuss her synagogue at 13 years of age, the complications of her broken bones and their expressed need for her to Physical Therapy at a SNF. I provided therapeutic listening and prayer. The family voiced appreciation and showed signs of being uplifted.
--- NOTE | 2025-04-28 18:41 | NUR ---
SHIFT SUMMARY PATIENT ALERT AND INTERACTIVE. PATIENT STATES SHE IS HARD OF HEARING. DENIES PAIN MOST OF SHIFT. REPORTING BACK AND LEG PAIN AT END OF SHIFT. PATIENT TO MRI EARLIER TODAY. FAMILY UPDATED BY DR. BECKER AND DR. DOBSON. R LEG IN FIBERGLASS SPLINT. PATIENT ABLE TO WIGGLE TOES. PLAN TO GO TO REHAB WHEN ABLE.
[2025-04-28 20:45] VITALS: BP 139/67
[2025-04-29 02:03] VITALS: BP 136/60
--- NOTE | 2025-04-29 05:35 | NUR ---
BLOCK BREAKER OPERATOR SUMMARY PT A&OX3 (SELF, PLACE, DATE), VSS, EXCEPT ELEVATED BP. PT DENIES ANY PAIN AND HAS BEEN ASLEEP FOR MOST OF THE SHIFT. CHEST RISE/RESPIRATIONS NOTED. PT REMAINS ON BEDREST D/T R ANKLE/FIB FX. SPLINT IN PLACE TO RLE AND REMAINS CDI. CSM INTACT IN ALL FOUR EXTREMITIES. PT ABLE TO WIGGLE TOES ON SPLINTED RLE. PUREWICK IN PLACE FOR INCONTINENCE. DRAINING CLEAR, YELLOW URINE TO SUCTION. BED RAILS UP X 2, BED WHEELS LOCKED, BED IN LOWEST POSITION, PERSONAL BELONGINGS AND CALL LIGHT WITHIN REACH FOR SAFETY.
[2025-04-29 07:15] VITALS: BP 130/77
[2025-04-29 08:26] LABS: BASOPHILS ABSOLUTE AUTO 0.06 K/mm3 (0.00-0.23); BASOPHILS PERCENT AUTO 1 % (0-2); EOSINOPHILS ABSOLUTE AUTO 0.13 K/mm3 (0.00-0.68); EOSINOPHILS PERCENT AUTO 1 % (0-6); Hematocrit 41.5 % (33.0-51.0); Hemoglobin 14.3 g/dL (11.5-16.0); IMMATURE GRAN ABSOLUTE AUTO 0.05 K/mm3 (0.00-0.10); IMMATURE GRAN PERCENT AUTO 0 % (0-1); LYMPHOCYTES ABSOLUTE AUTO 2.96 K/mm3 (0.84-5.20); LYMPHOCYTES PERCENT AUTO 23 % (21-46); MONOCYTES ABSOLUTE AUTO 0.54 K/mm3 (0.16-1.47); MONOCYTES PERCENT AUTO 4 % (4-13); Mean Corpuscular HGB Conc 34.5 g/dL (31.5-36.5); Mean Corpuscular Volume 90 fL (80-100); NEUTROPHILS ABSOLUTE AUTO 9.17 K/mm3 (1.96-9.15); NEUTROPHILS PERCENT AUTO 71 % (41-73); NRBC ABSOLUTE 0.00 K/mm3 (0.00-0.02); NRBC Auto 0.0 /100 WBC (0.0-0.2); Platelet Count 349 K/mm3 (150-400); RDW Coefficient Variation 14.2 % (11.7-14.2); RDW Standard Deviation 47.2 fL (35.1-46.3)
[2025-04-29 08:44] LABS: Magnesium, Blood 2.1 mg/dL (1.6-2.4)
[2025-04-29 08:45] LABS: Alanine Aminotransfer (ALT/SGP 24.0 U/L (12-78); Albumin, Blood 3.6 g/dL (3.4-5.0); Albumin/Globulin Ratio 1.1 (0.8-1.8); Anion Gap 9.0 mmol/L (3-11); Aspartate Aminotrans (AST/SGOT 28.0 U/L (12-37); Bilirubin, Total 1.5 mg/dL (0.1-1.0); Blood Urea Nitrogen 19.0 mg/dL (8-24); CO2, Blood 26.0 mmol/L (21-32); Calcium, Blood 9.1 mg/dL (8.5-10.1); Chloride, Blood 101.0 mmol/L (98-108); Creatinine, Blood 1.25 mg/dL (0.40-1.00); Globulin, Blood 3.4 g/dL (2.2-4.0); Glucose, Blood 185.0 mg/dL (70-99); Potassium, Blood 3.7 mmol/L (3.5-5.5); Sodium, Blood 132.0 mmol/L (136-145); Total Protein, Blood 7.0 g/dL (6.4-8.2)
[2025-04-29 13:28] VITALS: BP 114/53
--- NOTE | 2025-04-29 15:12 | NUR ---
SUMMARY PATIENT EVALUATED BY PHYSICAL THERAPY. THEY RECOMMENDED LIFT OR STEADY PATIENT IS NOT ABLE TO STAND AND PIVOT WHILE ALSO NOT BEARING WEIGHT TO RLE. NO CONSULT NOTE FROM DR. DOBSON BUT PER REPORT DR. DOBSON HAD WANTED PATIENT TO BE NONWEIGHT BEARING TO RIGHT LE FOR ABOUT 4 WEEKS THEN PARTIAL WEIGHT BEARING. NAUTICAL INSTRUMENT MECHANIC WORKING ON PLACEMENT. PT HAS VERY POOR APPETITE AND NOT WANTING TO DRINK MUCH EITHER. PUREWICK THIS AM. PT IMPULSIVE THIS AM AND ATTEMPTED TO GET OOB TO USE BATHROOM. PATIENT HAD A BOWEL MOVEMENT AND VOIDED AT THE SAME TIME. 2 ASSIST TO PUT BACK IN BED AND NOT HAVE PATIENT BEAR WEIGHT WHEN STANDING.
[2025-04-29 15:15] VITALS: BP 133/69
[2025-04-29 19:16] VITALS: BP 111/60
--- NOTE | 2025-04-30 04:38 | NUR ---
SUMMARY: PT ORIENTED TO SELF AND FAMILY BUT CONFUSED OTHERWISE AND [place]. SHE BEGAN SHIFT PLEASANT AND COOPERATIVE BUT BECAME MORE AGGITATED AND COMBATIVE DURING CARE NIGHT PROGRESSED. PT REFUSED ALL HS MEDS AND WAS IRRITABLE WHEN STAFF AWOKE HER FOR REPOSITIONING AND ADL'S. TURN SCHEDULE MAINTAINED AND LIFT REQUIRED OOB FOR NWB RLE BUT SHE SLEPT MAJORITY OF NOCTE. POOR PO INTAKE AND UO PERSISTS. FIBERGLASS SPLINT REMAINS IN PLACE TO R.ANKLE FX W/CAP REFILL AND SENSATION WNL. SHE DENIED PAIN AND ALL OTHER COMPLAINTS. NO ACUTE CHANGES, VSS AND AFEBRILE. PLAN FOR D/C FOR SNF. WILL REPORT TO DAY RN.
[2025-04-30 07:28] VITALS: BP 138/56
[2025-04-30 08:16] VITALS: BP 138/56
[2025-04-30 11:13] LABS: BASOPHILS ABSOLUTE AUTO 0.05 K/mm3 (0.00-0.23); BASOPHILS PERCENT AUTO 0 % (0-2); EOSINOPHILS ABSOLUTE AUTO 0.11 K/mm3 (0.00-0.68); EOSINOPHILS PERCENT AUTO 1 % (0-6); Hematocrit 38.9 % (33.0-51.0); Hemoglobin 13.2 g/dL (11.5-16.0); IMMATURE GRAN ABSOLUTE AUTO 0.05 K/mm3 (0.00-0.10); IMMATURE GRAN PERCENT AUTO 0 % (0-1); LYMPHOCYTES ABSOLUTE AUTO 1.74 K/mm3 (0.84-5.20); LYMPHOCYTES PERCENT AUTO 14 % (21-46); MONOCYTES ABSOLUTE AUTO 0.53 K/mm3 (0.16-1.47); MONOCYTES PERCENT AUTO 4 % (4-13); Mean Corpuscular HGB Conc 33.9 g/dL (31.5-36.5); Mean Corpuscular Volume 92 fL (80-100); NEUTROPHILS ABSOLUTE AUTO 9.90 K/mm3 (1.96-9.15); NEUTROPHILS PERCENT AUTO 80 % (41-73); NRBC ABSOLUTE 0.00 K/mm3 (0.00-0.02); NRBC Auto 0.0 /100 WBC (0.0-0.2); Platelet Count 271 K/mm3 (150-400); RDW Coefficient Variation 14.3 % (11.7-14.2); RDW Standard Deviation 48.5 fL (35.1-46.3)
[2025-04-30 11:48] LABS: Alanine Aminotransfer (ALT/SGP 25.0 U/L (12-78); Albumin, Blood 3.4 g/dL (3.4-5.0); Albumin/Globulin Ratio 1.2 (0.8-1.8); Anion Gap 10.0 mmol/L (3-11); Aspartate Aminotrans (AST/SGOT 31.0 U/L (12-37); Bilirubin, Total 1.4 mg/dL (0.1-1.0); Blood Urea Nitrogen 19.0 mg/dL (8-24); CO2, Blood 26.0 mmol/L (21-32); Calcium, Blood 9.0 mg/dL (8.5-10.1); Chloride, Blood 101.0 mmol/L (98-108); Creatinine, Blood 1.17 mg/dL (0.40-1.00); Globulin, Blood 2.9 g/dL (2.2-4.0); Glucose, Blood 192.0 mg/dL (70-99); Magnesium, Blood 2.5 mg/dL (1.6-2.4); Potassium, Blood 4.0 mmol/L (3.5-5.5); Sodium, Blood 133.0 mmol/L (136-145); Total Protein, Blood 6.3 g/dL (6.4-8.2)
[2025-04-30] MEDS ORDERED: AMLO5 PO (15:21)
[2025-04-30] MEDS ORDERED: CARV3.125 PO (15:22)
[2025-04-30] MEDS ORDERED: Avapro150 MG PO (15:22)
[2025-04-30] MEDS ORDERED: METF500C PO (15:23)
[2025-04-30] MEDS ORDERED: LEVSOD75 PO (15:23)
== END 2025-04-30 14:32 | DRG 563 ==
LOC: ER 20:44 → SURS 20:45 → ER 20:45 → ERHOLD 04-26 04:05 → ER 04-26 04:05 → ERHOLD 04-26 04:13 → SURS 04-26 04:13 → MEDS 04-26 04:13 → SURS 04-26 04:13 → ERHOLD 04-26 04:13 → MEDS 04-26 10:52
PROVIDERS: Hospitalist; Student in an Organized Health Care Education/Training Program; ADMIT Student in an Organized Health Care Education/Training Program
PROC: 2W3LX1Z Immobilization of Right Lower Extremity using Splint (ICD-10-PCS; principal; 2025-04-25)
DX: S82.841A Displaced bimalleolar fracture of right lower leg, initial encounter for closed fracture (principal); S82.831A Other fracture of upper and lower end of right fibula, initial encounter for closed fracture; E11.9 Type 2 diabetes mellitus without complications; E78.5 Hyperlipidemia, unspecified; E03.9 Hypothyroidism, unspecified; W01.0XXA Fall on same level from slipping, tripping and stumbling without subsequent striking against object, initial encounter; Z90.49 Acquired absence of other specified parts of digestive tract; Z90.710 Acquired absence of both cervix and uterus; Z96.641 Presence of right artificial hip joint; Z98.42 Cataract extraction status, left eye; Z98.41 Cataract extraction status, right eye; Z87.891 Personal history of nicotine dependence; Z88.0 Allergy status to penicillin; Z79.82 Long term (current) use of aspirin; Z79.890 Hormone replacement therapy; Z79.899 Other long term (current) drug therapy; Z79.84 Long term (current) use of oral hypoglycemic drugs; E87.6 Hypokalemia; E11.65 Type 2 diabetes mellitus with hyperglycemia; E11.22 Type 2 diabetes mellitus with diabetic chronic kidney disease; N18.9 Chronic kidney disease, unspecified
CPT/HCPCS: 27825; 36415; 70450; 70496; 70498; 70551; 71045; 73562-RT; 73600; 80053; 81001; 82803; 82947; 83735; 83880; 84100; 84443; 84484; 85025; 85651; 86140; 87086; 93005; 93010; 93306; 96374; 96375; 96375-59; 96376-59; 97110; 97162; 97530; 99152; 99285-25; A6590; A9270; G0378; J0360; J1171; J1650; J1815; J1885; J2405; J2704; J2765; J3010; J7030; J7120; Q9967

== ENCOUNTER 2025-05-17 11:24 | Emergency (ER) | payer MEDICARE, OTHER ==
[~2025-05-17] VITALS: Ht 157.5 cm; Wt 72.6 kg
[~2025-05-17 11:24] MED LIST changes: +Avapro150 MG PO; +LEVSOD75 PO; +METF500C PO
[2025-05-17 11:53] LABS: BASOPHILS ABSOLUTE AUTO 0.04 K/mm3 (0.00-0.23); BASOPHILS PERCENT AUTO 1 % (0-2); EOSINOPHILS ABSOLUTE AUTO 0.15 K/mm3 (0.00-0.68); EOSINOPHILS PERCENT AUTO 2 % (0-6); Hematocrit 32.6 % (33.0-51.0); Hemoglobin 11.3 g/dL (11.5-16.0); IMMATURE GRAN ABSOLUTE AUTO 0.02 K/mm3 (0.00-0.10); IMMATURE GRAN PERCENT AUTO 0 % (0-1); LYMPHOCYTES ABSOLUTE AUTO 1.81 K/mm3 (0.84-5.20); LYMPHOCYTES PERCENT AUTO 21 % (21-46); MONOCYTES ABSOLUTE AUTO 0.40 K/mm3 (0.16-1.47); MONOCYTES PERCENT AUTO 5 % (4-13); Mean Corpuscular HGB Conc 34.7 g/dL (31.5-36.5); Mean Corpuscular Volume 92 fL (80-100); NEUTROPHILS ABSOLUTE AUTO 6.34 K/mm3 (1.96-9.15); NEUTROPHILS PERCENT AUTO 72 % (41-73); NRBC ABSOLUTE 0.00 K/mm3 (0.00-0.02); NRBC Auto 0.0 /100 WBC (0.0-0.2); Platelet Count 260 K/mm3 (150-400); RDW Coefficient Variation 13.3 % (11.7-14.2); RDW Standard Deviation 45.0 fL (35.1-46.3)
[2025-05-17 12:04] LABS: Anion Gap 10.0 mmol/L (3-11); Blood Urea Nitrogen 14.0 mg/dL (8-24); CO2, Blood 25.0 mmol/L (21-32); Calcium, Blood 9.3 mg/dL (8.5-10.1); Chloride, Blood 105.0 mmol/L (98-108); Creatinine, Blood 0.8 mg/dL (0.40-1.00); Glucose, Blood 175.0 mg/dL (70-99); Magnesium, Blood 1.6 mg/dL (1.6-2.4); Potassium, Blood 3.2 mmol/L (3.5-5.5); Sodium, Blood 137.0 mmol/L (136-145)
[2025-05-17 17:45] VITALS: BP 161/128
== END 2025-05-17 18:08 | disposition home or self-care (01) ==
LOC: ER 11:24
PROVIDERS: Emergency Medicine
DX: R07.9 Chest pain, unspecified (principal); E03.9 Hypothyroidism, unspecified; E78.00 Pure hypercholesterolemia, unspecified; E11.9 Type 2 diabetes mellitus without complications; Z87.891 Personal history of nicotine dependence; Z79.82 Long term (current) use of aspirin; Z79.84 Long term (current) use of oral hypoglycemic drugs; Z88.7 Allergy status to serum and vaccine; Z88.0 Allergy status to penicillin
CPT/HCPCS: 71045; 80048; 83735; 84484; 85025; 93005; 93010; 99285-25; A9270